=== PATIENT | female | born 1950 | race Caucasian/White ===

== ENCOUNTER → 2020-03-23 11:46 | Outpatient (BNVA) | payer MEDICARE, MEDICAID, SELFPAY | PROVIDERS: Family Provider Family Medicine; PCP Family Medicine; Visit Provider Family Medicine | DX: E11.65 Type 2 diabetes mellitus with hyperglycemia (principal); E78.2 Mixed hyperlipidemia; I10 Essential (primary) hypertension | CPT/HCPCS: 83036 ==

== ENCOUNTER → 2020-04-03 07:39 | Outpatient (BNVA) | payer MEDICARE, MEDICAID, SELFPAY | PROVIDERS: Family Provider Family Medicine; PCP Family Medicine; Visit Provider Family Medicine | DX: E11.65 Type 2 diabetes mellitus with hyperglycemia (principal); E78.2 Mixed hyperlipidemia; I10 Essential (primary) hypertension | CPT/HCPCS: 80053; 80061; 84439; 84443; 85025 ==

== ENCOUNTER → 2020-06-29 14:13 | Outpatient (BNVA) | payer MEDICARE, MEDICAID, SELFPAY | PROVIDERS: Family Provider Family Medicine; PCP Family Medicine; Visit Provider Family Medicine | DX: E11.59 Type 2 diabetes mellitus with other circulatory complications (principal); I10 Essential (primary) hypertension; E78.2 Mixed hyperlipidemia; M17.0 Bilateral primary osteoarthritis of knee | CPT/HCPCS: 36415; 80053; 80061; 83036; 85025 ==

== ENCOUNTER → 2020-07-20 15:40 | Outpatient (BNVA) | payer MEDICARE, MEDICAID, SELFPAY | PROVIDERS: Family Provider Family Medicine; PCP Family Medicine; Visit Provider Family Medicine | DX: E87.5 Hyperkalemia (principal) | CPT/HCPCS: 36415; 80053 ==

== ENCOUNTER 2020-08-05 15:35 | Emergency (ER) | payer MEDICARE, MEDICAID, SELFPAY ==
[2020-08-05 15:41] VITALS: BP 179/71; PULSE 76; RESP 18; TEMP 36.4; O2SAT 98; BMI 44.0
--- NOTE | 2020-08-05 15:55 | XRR_ITS ---
PROCEDURE INFORMATION: Exam: XR Chest, 1 View Exam date and time: 08/05/2020 3:56 PM Age: 70 years old Clinical indication: Shortness of breath; Additional info: Short of breath TECHNIQUE: Imaging protocol: XR of the chest Views: 1 view. COMPARISON: No relevant prior studies available. FINDINGS: Lungs: Unremarkable. No consolidation. Pleural space: Unremarkable. No pleural effusion. No pneumothorax. Heart/Mediastinum: Unremarkable. No cardiomegaly. Bones/joints: Unremarkable. XR/XR chest 1V portable [id number] IMPRESSION: No acute findings.
[2020-08-05 16:51] LABS: Basophils # 0.1 10^3/uL (0.0-0.1); Basophils % 1.2 %; Eosinophils # 0.3 10^3/uL (0.0-0.8); Eosinophils % 3.7 %; Hematocrit 40.7 % (37.0-47.0); Hemoglobin 12.5 g/dL (11.5-15.3); Lymphocytes # 1.9 10^3/uL (0.8-4.8); Lymphocytes % 24.5 %; Mean Corpuscular HGB Conc 30.7 g/dL (30.0-36.0); Mean Corpuscular Volume 91.1 fL (81-99); Mean Platelet Volume 11.4 fL (7.4-10.4); Monocytes # 0.6 10^3/uL (0.2-0.9); Monocytes % 8.1 %; Neutrophils # 4.79 10^3/uL (1.8-7.7); Neutrophils % 61.6 %; Nucleated Red Blood Cells % 0 %; Platelet Count 276 10^3/cmm (130-400); Red Blood Count 4.47 10^6/uL (4.1-5.3); Red Cell Distribution Width 15.3 % (12.1-15.1); White Blood Count 7.8 10^3/uL (4.0-10.0)
--- NOTE | 2020-08-05 17:22 | ECG_ITS ---
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 Measurements Intervals [place] Rate: 72 P: 72 AR: 196 QRS: 33 QRSD: 98 T: 46 QT: 412 QTc: 452 Interpretive Statements SINUS RHYTHM MINIMAL ST DEPRESSION [0.025+ mV ST DEPRESSION] Poor R wave progression No previous ECG available for comparison Electronically Signed On 08-05-2020 21:28:24 PLUG MAKING OPERATOR by Ambrose Bennett M.D. [id number] f
--- NOTE | 2020-08-05 17:26 | W.ED.GENADLT ---
HPI - General Adult General: Chief complaint: General Medical Stated complaint: SOB High BS, Swollen feet Time Seen by Provider: 08/05/20 17:21 History of Present Illness: HPI narrative: 70 year old female in for swelling lower extremities and elevated blood sugars. The patient has been a little more short of breath. No fever or chills. Onset (ago): day(s) Location: lower extremity Severity: mild Pain Consistency: constant Exacerbating factors: movement Associated symptoms: Reports dyspnea and short of breath; Deny fevers/chills Review of Systems Resp: Reports: dyspnea PFSH ED PFSH: Medical History Hyperlipidemia Hypertension Leg weakness, bilateral Osteoarthritis deformans Type 2 diabetes mellitus Social History Smoking and tobacco status: never smoked Alcohol intake: never Physical Exam Const: COMMON NORMALS: no acute distress and no limitations; negative for average body habitus GENERAL APPEARANCE: cooperative and Edematous HENMT: COMMON NORMALS: normocephalic HEAD & SCALP: normocephalic FACE & SINUS: normal facial exam Resp: COMMON NORMALS: normal respiratory effort and clear to auscultation bilaterally AUSCULTATION: clear to auscultation bilaterally Cardio: COMMON NORMALS: regular rate and regular rhythm RATE: regular rate RHYTHM: regular rhythm : COMMON NORMALS: Yes no CVA tenderness BLADDER/KIDNEY EXAM: Yes no CVA tenderness Back/Pelvis: COMMON NORMALS: no CVA tenderness Extremity: COMMON NORMALS: negative for no clubbing, cyanosis or edema NARRATIVE EXTREMITY EXAM: Mild non pitting edema GENERAL: Yes normal exam except as noted Course Vital Signs: Vital signs: Vital Signs Temperature 97.6 F 08/05/20 15:41 Pulse Rate 76 08/05/20 15:41 Respiratory Rate 18 08/05/20 15:41 Blood Pressure 179/71 08/05/20 15:41 Pulse Oximetry 98 08/05/20 15:41 MDM - General Adult MDM Narrative: Medical decision making narrative: 70-year-old in with concerns of lower extremity edema and shortness of breath. She is on 50 mg of hydrochlorothiazide as her only diuretic she reports she is allergic to furosemide. Suspect she has heart failure. I'll give her a dose of Bumex and see how she tolerates that. The patient doesn't appear to be any acute distress she is very worried about her blood sugar will give her small dose of insulin here. Everything checks out will be able to discharge her home with follow-up with her primary care physician. She should discontinue use of ibuprofen. May consider discontinuation of the Actos to given her heart failure. Lab Data: Labs: Lab Results 08/05/20 08/05/20 Range/Units 16:36 16:36 WBC 7.8 (4.0-10.0) 10^3/ uL RBC 4.47 (4.1-5.3) 10^6/u L Hgb 12.5 (11.5-15.3) g/dL Hct 40.7 (37.0-47.0) % MCV 91.1 (81-99) fL MCH 28.0 (28.0-34.0) pg MCHC 30.7 (30.0-36.0) g/dL RDW 15.3 H (12.1-15.1) % Plt Count 276 (130-400) 10^3/c mm MPV 11.4 H (7.4-10.4) fL Neut % (Auto) 61.6 % Lymph % (Auto) 24.5 % [place] % (Auto) 8.1 % Eos % (Auto) 3.7 % Baso % (Auto) 1.2 % Neut # (Auto) 4.79 (1.8-7.7) 10^3/u L Lymph # (Auto) 1.9 (0.8-4.8) 10^3/u L [place] # (Auto) 0.6 (0.2-0.9) 10^3/u L Eos # (Auto) 0.3 (0.0-0.8) 10^3/u L Baso # (Auto) 0.1 (0.0-0.1) 10^3/u L Nucleated RBC % (a uto) 0 % Nucleated RBCs # 0.0 /100WBC Sodium 137 (136-145) mmol/L Potassium 4.1 (3.5-5.1) mmol/L Chloride 104 (98-107) mmol/L Carbon Dioxide 22 (22-29) mmol/L Anion Gap 15.1 (5-19) BUN 29 H (8-23) mg/dL Creatinine 1.2 H (0.5-0.9) mg/dL GFR Calculation Not Reportable Glucose 243 H (65-115) mg/dL Calculated Osmolal ity 298 H (285-295) mOsm/k g Calcium 10.2 (8.5-10.5) mg/dL Total Bilirubin 1.0 (0.15-1.2) mg/dL AST 15 (0-32) U/L ALT 17 (0-33) U/L Alkaline Phosphata se 97 (35-105) IU/L NT-Pro-B Natriuret Pep 5276 H (0-125) pg/mL Total Protein 7.3 (6.6-8.7) g/dL Albumin 3.6 (3.5-5.2) g/dL Globulin 3.7 (1.3-4.6) g/dL Discharge Plan Discharge Patient Disposition: Home Clinical Impression: Heart failure Qualifiers: Heart failure type: unspecified Heart failure chronicity: acute on chronic Qualified Code(s): I50.9 - Heart failure, unspecified Condition: Stable Prescriptions: No Action calcium carbonate-vitamin D3 500 mg(1,250mg) -50 unit capsule 1 cap PO BID@ RF: 0 diphenhydramine HCl [Allergy (diphenhydramine)] 25 mg capsule 50 mg PO BEDTIME PRN (Reason: Sleep) RF: 0 ibuprofen 800 mg tablet 800 mg PO Q8H PRN (Reason: pain) Qty: 270 RF: 1 albuterol sulfate [ProAir HFA] 90 mcg/actuation HFA aerosol inhaler 2 puff INHALATION Q6H PRN (Reason: bronchospasm) Qty: 18 RF: 5 atenolol 100 mg tablet 100 mg PO BID@ RF: 0 hydrochlorothiazide 50 mg tablet 50 mg PO DAILY@ RF: 0 lisinopril 20 mg tablet 20 mg PO DAILY@ RF: 0 glipizide 10 mg tablet 20 mg PO BID@ RF: 0 clonidine HCl 0.3 mg tablet 0.3 mg PO TID@,, RF: 0 Actos 30 mg tablet 30 mg PO DAILY@ RF: 0 Crestor 10 mg tablet 10 mg PO DAILY@ RF: 0 Discharge Orders: Discharge ED (Routine); Ordered 08/05/20 Ordered By: Aguilar Muñiz Referrals: Devante Granados DO [Primary Care Provider] - Discharge Diet: Low Salt Discharge Activity: Resume usual activity Coding Level of Care Code ED [employer] 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
[2020-08-05 17:37] LABS: Alanine Aminotransferase 17 U/L (0-33); Albumin Level 3.6 g/dL (3.5-5.2); Alkaline Phosphatase 97 IU/L (35-105); Anion Gap 15.1 (5-19); Aspartate Amino Transferase 15 U/L (0-32); Blood Urea Nitrogen 29 mg/dL (8-23); Calcium 10.2 mg/dL (8.5-10.5); Carbon Dioxide 22 mmol/L (22-29); Chloride 104 mmol/L (98-107); Globulin 3.7 g/dL (1.3-4.6); Glucose 243 mg/dL (65-115); NT Pro B Type Natriuretic Pept 5276 pg/mL (0-125); Osmolality Calculated 298 mOsm/kg (285-295); Potassium 4.1 mmol/L (3.5-5.1); Sodium 137 mmol/L (136-145); Total Protein 7.3 g/dL (6.6-8.7)
[2020-08-05 18:11] LABS: Magnesium 1.4 mg/dL (1.7-2.3)
[2020-08-05] MEDS: bumetanide 0.25 mg/mL SDV 4 mL 1 MG IV (18:21)
[2020-08-05 18:28] VITALS: BP 175/118; PULSE 81; O2SAT 100
[2020-08-05 19:10] VITALS: BP 124/89; PULSE 87; RESP 16; O2SAT 99
== END 2020-08-05 19:12 | disposition home or self-care (01) ==
PROVIDERS: Nurse Practitioner Family; Emergency Provider Family Medicine; PCP Family Medicine
DX: I11.0 Hypertensive heart disease with heart failure (principal); I50.9 Heart failure, unspecified; E78.5 Hyperlipidemia, unspecified; E11.9 Type 2 diabetes mellitus without complications
CPT/HCPCS: 12345; 71045; 80053; 83735; 83880; 85025; 93005; 96372; 96374; 99283; J1815; J3490

== ENCOUNTER → 2021-05-03 11:45 | Outpatient (BNVA) | payer MEDICARE, MEDICAID, SELFPAY | PROVIDERS: PCP Family Medicine; Visit Provider Family Medicine | DX: E11.59 Type 2 diabetes mellitus with other circulatory complications (principal) | CPT/HCPCS: 83036 ==

== ENCOUNTER → 2021-11-01 10:47 | Outpatient (BNVA) | payer MEDICARE, MEDICAID, SELFPAY | PROVIDERS: PCP Family Medicine; Visit Provider Family Medicine | DX: E11.9 Type 2 diabetes mellitus without complications (principal); Z79.4 Long term (current) use of insulin | CPT/HCPCS: 83036 ==

== ENCOUNTER 2022-11-25 14:56 | Outpatient (CLI) | payer MEDICARE, MEDICAID, SELFPAY ==
--- NOTE | 2022-11-25 15:21 | MM_ITS ---
WS: [id number] BILATERAL 3D TOMOSYNTHESIS DIGITAL SCREENING MAMMOGRAPHY WITH CAD CLINICAL INFORMATION: SCREEN HISTORY: Screening mammogram. No current complaints. COMPARISON: 2017 TECHNIQUE: Bilateral CC and MLO views. FINDINGS: Scattered fibroglandular densities bilaterally. No suspicious focal mass, asymmetry, calcifications, or architectural distortion. No evidence of malignancy. Vascular calcification. Clustered calcificati ons 12:00 RIGHT breast are similar in appearance compared to 2017. MM/[place] [id number] IMPRESSION: BI-RADS: 2-Benign FOLLOW UP: 1 Year Follow-up Recommend return to annual screening mammography.
== END 2022-11-25 14:57 | disposition home or self-care (01) ==
LOC: RAD 15:02
PROVIDERS: PCP Family Medicine; Visit Provider Family Medicine
DX: Z12.31 Encounter for screening mammogram for malignant neoplasm of breast (principal)
CPT/HCPCS: 77063; 77067

== ENCOUNTER → 2022-12-14 09:08 | Outpatient (BNVA) | payer MEDICARE, MEDICAID, SELFPAY | PROVIDERS: PCP Family Medicine; Visit Provider Family Medicine | DX: E11.65 Type 2 diabetes mellitus with hyperglycemia (principal); Z79.4 Long term (current) use of insulin | CPT/HCPCS: 83036 ==

== ENCOUNTER → 2023-07-17 11:01 | Outpatient (BNVA) | payer MEDICARE, MEDICAID, SELFPAY | PROVIDERS: PCP Family Medicine; Visit Provider Family Medicine | DX: E11.9 Type 2 diabetes mellitus without complications (principal) | CPT/HCPCS: 83036 ==

== ENCOUNTER 2024-04-16 23:05 | Inpatient (IN) | payer MEDICARE, MEDICAID, SELFPAY ==
[2024-04-16 23:28] VITALS: BP 180/69; PULSE 77; RESP 16; TEMP 36.6; O2SAT 100; BMI 39.4
[2024-04-16 23:31] VITALS: BP 180/69; PULSE 72; RESP 18; O2SAT 100
--- NOTE | 2024-04-16 23:59 | ECG_ITS ---
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 Measurements Intervals [place] Rate: 71 P: 85 CT: 188 QRS: 40 QRSD: 89 T: 78 QT: 468 QTc: 510 Interpretive Statements SINUS RHYTHM WITH OCCASIONAL SUPRAVENTRICULAR PREMATURE COMPLEXES MODERATE ST DEPRESSION [0.05+ mV ST DEPRESSION] PROLONGED QT INTERVAL Compared to ECG 08/05/2020 17:34:38 Prolonged QT interval now present Poor R-wave progression no longer present ST (T wave) deviation still present Electronically Signed On 04-17-2024 17:35:41 CDT by Ambrose Bennett M.D. [id number]
--- NOTE | 2024-04-16 23:59 | XRR_ITS ---
PROCEDURE INFORMATION: Exam: XR Chest Exam date and time: 04/17/2024 12:21 AM Age: 73 years old Clinical indication: Shortness of breath; Additional info: Weakness TECHNIQUE: Imaging protocol: Radiologic exam of the chest. Views: 1 view. COMPARISON: CR XR chest 1V portable [id number] 08/05/2020 4:09 PM FINDINGS: Lungs: There is linear scarring or atelectasis involving the left mid lung. No consolidated infiltrates are appreciated. Pleural spaces: Unremarkable. No pleural effusion. No pneumothorax. Heart/Mediastinum: The heart is slightly enlarged. Bones/joints: Unremarkable. XR/XR chest 1V portable [id number] IMPRESSION: 1. Mild cardiomegaly. 2. Linear scarring or atelectasis involving the left mid lung.
[2024-04-17] VITALS (32 sets, daily range): BP systolic 132–198; BP diastolic 60–93; PULSE 65–86; RESP 14–18; TEMP 36.6–37.2; O2SAT 91–100; BMI 42.9
--- NOTE | 2024-04-17 00:04 | W.ED.WEAKNES ---
HPI - Weakness General: Chief complaint: Weakness Stated complaint: generalized weakness Time Seen by Provider: 04/16/24 23:56 History of Present Illness: Patient presents to the ER for generalized weakness. She says when she was sitting on toilet use the bathroom her legs went numb and she could not get up so she called life alert. Said now she is all back to normal. Patient does use a walker in her wheelchair normally. Review of Systems General: Reports: 10 or more systems reviewed and unremarkable except in HPI and below PFSH ED PFSH: Medical History Osteoarthritis deformans Leg weakness, bilateral Type 2 diabetes mellitus Hypertension Hyperlipidemia Social History Smoking and tobacco/nicotine status: never used tobacco/nicotine Alcohol intake: never Physical Exam Const: COMMON NORMALS: no acute distress, average body habitus, patient oriented x3, no limitations, healthy appearing, alert and well nourished HENMT: COMMON NORMALS: normocephalic, atraumatic, hearing grossly normal bilaterally, external ears normal, Normal external nose present and moist oral mucous membranes HEAD & SCALP: normocephalic and atraumatic NOSE: Normal external nose present EXTERNAL EAR: Yes external ears normal Neck/C-Spine: COMMON NORMALS: no JVD Chest: COMMONS NORMALS: normal inspection of the chest and normal palpation of entire chest wall Resp: COMMON NORMALS: normal respiratory effort, No retractions, No use of accessory muscles and clear to auscultation bilaterally AUSCULTATION: clear to auscultation bilaterally Cardio: COMMON NORMALS: no JVD, regular rate, regular rhythm, S1 normal heart sound present, S2 normal heart sound present, No gallops present (Cardio), No clicks present (Cardio), No murmurs present (Cardio) and No rub (Cardio) RATE: regular rate RHYTHM: regular rhythm HEART SOUNDS: S1 normal heart sound present and S2 normal heart sound present GI: COMMON NORMALS: Normal to inspection, nondistended, normoactive bowel sounds present, Soft to palpation, non-tender, No hepatosplenomegaly present and no masses PALPATION: Yes Soft to palpation and Yes No hepatosplenomegaly present Extremity: NARRATIVE EXTREMITY EXAM: 2+ pitting edema bilateral lower extremities Neuro: COMMON NORMALS: patient oriented x3 SENSORIUM/ORIENTATION: Yes alert Course Vital Signs: Vital signs: Vital Signs Temperature 97.8 F 04/16/24 23:28 Pulse Rate 72 04/17/24 01:30 Respiratory Rate 14 04/17/24 01:30 Blood Pressure 183/68 04/17/24 01:30 Pulse Oximetry 100 04/17/24 01:30 Oxygen Delivery Me thod Room Air 04/17/24 01:30 MDM - Weakness Medical Decision Making Patient's white count was 32,000, platelets 478, hemoglobin 7.2, BUN/creatinine 39 and 1.6, magnesium 1.4, sed rate 16, Dr. Irizarry came down and evaluated patient, we will get a CT scan of the abdomen pelvis without contrast as well as a CT scan of the lumbar spine. Patient [facility] be placed in [facility] for further evaluation and treatment. Medical Records I reviewed the patient's medical records. Lab Data I reviewed the patient's lab results. 04/17/24 00:17 04/17/24 00:17 Radiology Impressions Chest X-Ray 04/16/24 23:59 IMPRESSION: 1. Mild cardiomegaly. 2. Linear scarring or atelectasis involving the left mid lung. Laboratory Results WBC 32.06 10^3/uL (3.29-11.43) H* 04/17/24 00:17 RBC 4.06 10^6/uL (3.85-5.65) 04/17/24 00:17 Hgb 7.20 g/dL (11.27-16.99) L 04/17/24 00:17 Hct 26.7 % (36-47) L 04/17/24 00:17 MCV 65.8 fl (85-98) L 04/17/24 00:17 MCH 17.7 pg (27-33) L 04/17/24 00:17 MCHC 27.0 g/dL (30-55) L 04/17/24 00:17 RDW 17.0 % (12.1-15.1) H 04/17/24 00:17 Plt Count 478 10^3/cmm (157-399) H 04/17/24 00:17 MPV 9.8 fL (7.4-10.4) 04/17/24 00:17 Neut % (Auto) 90.8 % 04/17/24 00:17 Lymph % (Auto) 2.7 % 04/17/24 00:17 [place] % (Auto) 4.8 % 04/17/24 00:17 Eos % (Auto) 0.0 % 04/17/24 00:17 Baso % (Auto) 0.2 % 04/17/24 00:17 Neut # (Auto) 29.08 10^3/uL (1.8-7.7) H 04/17/24 00:17 Lymph # (Auto) 0.9 10^3/uL (0.8-4.8) 04/17/24 00:17 [place] # (Auto) 1.5 10^3/uL (0.2-0.9) H 04/17/24 00:17 Eos # (Auto) 0.0 10^3/uL (0.0-0.8) 04/17/24 00:17 Baso # (Auto) 0.1 10^3/uL (0.0-0.1) 04/17/24 00:17 Nucleated RBC % (auto) 0.2 % 04/17/24 00:17 Nucleated RBCs # 0.1 /100WBC 04/17/24 00:17 ESR 16 mm/hr (0-15) H 04/17/24 00:17 PT 14.00 SECONDS (12.1-14.9) 04/17/24 01:17 INR 1.05 (0.8-1.2) 04/17/24 01:17 APTT 24.2 SECONDS (23.9-36.7) 04/17/24 01:17 Sodium 137 mmol/L (136-145) 04/17/24 00:17 Potassium 3.9 mmol/L (3.5-5.1) 04/17/24 00:17 Chloride 100 mmol/L (98-107) 04/17/24 00:17 Carbon Dioxide 21 mmol/L (22-29) L 04/17/24 00:17 Anion Gap 19.9 (5-19) H 04/17/24 00:17 BUN 39 mg/dL (8-23) H 04/17/24 00:17 Creatinine 1.6 mg/dL (0.5-0.9) H 04/17/24 00:17 GFR Calculation Not Reportable 04/17/24 00:17 Glucose 166 mg/dL (65-115) H 04/17/24 00:17 Calculated Osmolality 297 mOsm/kg (285-295) H 04/17/24 00:17 Lactic Acid 1.7 mmol/L (0.5-2.2) 04/17/24 01:17 Calcium 9.4 mg/dL (8.5-10.5) 04/17/24 00:17 Magnesium 1.4 mg/dL (1.7-2.3) L 04/17/24 00:17 Total Bilirubin 0.8 mg/dL (0.15-1.2) 04/17/24 00:17 AST 11 U/L (0-32) 04/17/24 00:17 ALT 8 U/L (0-33) 04/17/24 00:17 Alkaline Phosphatase 99 U/L (35-105) 04/17/24 00:17 Troponin T Baseline 25 ng/L (0-10) H 04/17/24 01:17 C-Reactive Protein 3.0 mg/L (0.0-4.9) 04/17/24 01:17 NT-Pro-B Natriuret Pep 3212 pg/mL (0-450) H 04/17/24 01:17 Total Protein 7.0 g/dL (6.6-8.7) 04/17/24 00:17 Albumin 3.6 g/dL (3.5-5.2) 04/17/24 00:17 Globulin 3.4 g/dL (1.3-4.6) 04/17/24 00:17 Procalcitonin 0.18 ng/mL (0-0.5) 04/17/24 01:17 TSH 3.75 uIU/mL (0.27-4.20) 04/17/24 01:17 Salicylates < 0.3 mg/dL (3-10) L 04/17/24 01:17 Acetaminophen < 5.0 ug/mL (10-30) L 04/17/24 01:17 Ethyl Alcohol < 10 mg/dL (0-10) 04/17/24 01:17 Serum Ketones Negative (Negative) 04/17/24 01:17 All radiology interpretation(s) finalized by discharge Discharge Plan Discharge Patient Disposition: Admitted As Inpatient Admit Provider: Vijay Irizarry Clinical Impression: Bilateral leg weakness, Anemia, Leukocytosis, Acute kidney insufficiency Condition: Stable Coding Level of Care Code ED Public Safety Director for Chg Fwd Related Data Home Medications Medication Instructions Recorded Confirmed diphenhydramine HCl 25 mg capsule 50 mg PO BEDTIME PRN Sleep 03/23/20 07/17/23 (Allergy (diphenhydramine)) calcium carbonate-vitamin D3 500 1 cap PO BID@06/29/20 07/17/23 mg (1,250 mg)-50 unit capsule Previous Rx's Medication Instructions Recorded albuterol sulfate 90 mcg/actuation 2 puff inhalation Q6H PRN 12/14/22 aerosol inhaler (ProAir HFA) bronchospasm #18 grams rosuvastatin 10 mg tablet See Rx Instructions .Route 07/05/23 .COMPLEX #90 tabs ibuprofen 800 mg tablet 800 mg PO Q8H PRN pain #270 tabs 07/17/23 scooter #1 ea 07/19/23 pen needle, diabetic 32 gauge x #100 ea 09/06/2332 (TechLITE Pen Needle) blood sugar diagnostic (Accu-Chek #400 ea 09/22/23 Nettie Plus test strips) lisinopril 20 mg tablet See Rx Instructions .Route 11/15/23 .COMPLEX #180 tabs hydrochlorothiazide 50 mg tablet See Rx Instructions .Route 11/27/23 .COMPLEX #90 tabs insulin NPH-regular 70-30 U-100 See Rx Instructions .Route 03/04/24 insulin 100 unit/mL subcutaneous .COMPLEX #15 mL pen (Humulin 70/30 U-100 KwikPen) clonidine HCl 0.3 mg tablet See Rx Instructions .Route 03/19/24 .COMPLEX #90 tabs atenolol 100 mg tablet See Rx Instructions .Route 04/02/24 .COMPLEX #60 tabs Allergies Allergy/AdvReac Type Severity Reaction Status Date / Time furosemide [From Lasix] Allergy Intermediate ALGY-Hives Verified 07/17/23 10:17 metformin AdvReac Intermediate algy-diarrh Verified 07/17/23 10:17 ea
[2024-04-17 00:31] LABS: Basophils # 0.1 10^3/uL (0.0-0.1); Basophils % 0.2 %; Hematocrit 26.7 % (36-47); Lymphocytes # 0.9 10^3/uL (0.8-4.8); Lymphocytes % 2.7 %; Mean Corpuscular Hemoglobin 17.7 pg (27-33); Mean Corpuscular Volume 65.8 fl (85-98); Mean Platelet Volume 9.8 fL (7.4-10.4); Monocytes # 1.5 10^3/uL (0.2-0.9); Monocytes % 4.8 %; Neutrophils # 29.08 10^3/uL (1.8-7.7); Neutrophils % 90.8 %; Nucleated Red Blood Cells # 0.1 /100WBC; Nucleated Red Blood Cells % 0.2 %; Platelet Count 478 10^3/cmm (157-399); Red Blood Count 4.06 10^6/uL (3.85-5.65)
[2024-04-17 00:45] LABS: Alanine Aminotransferase 8 U/L (0-33); Albumin Level 3.6 g/dL (3.5-5.2); Alkaline Phosphatase 99 U/L (35-105); Anion Gap 19.9 (5-19); Aspartate Amino Transferase 11 U/L (0-32); Blood Urea Nitrogen 39 mg/dL (8-23); Calcium 9.4 mg/dL (8.5-10.5); Carbon Dioxide 21 mmol/L (22-29); Chloride 100 mmol/L (98-107); Creatinine Clr Calc Pharmacy 35.7544; Globulin 3.4 g/dL (1.3-4.6); Glucose 166 mg/dL (65-115); Magnesium 1.4 mg/dL (1.7-2.3); Osmolality Calculated 297 mOsm/kg (285-295); Potassium 3.9 mmol/L (3.5-5.1); Sodium 137 mmol/L (136-145); Total Bilirubin 0.8 mg/dL (0.15-1.2)
[2024-04-17 00:49] LABS: White Blood Count 32.06 10^3/uL (3.29-11.43)
[2024-04-17] MEDS: sodium chloride 0.9% 1,000 ML 999 ML IV (01:15)
--- NOTE | 2024-04-17 01:21 | ECG_ITS ---
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 Measurements Intervals [place] Rate: 78 P: 66 MS: 177 QRS: 38 QRSD: 94 T: 53 QT: 433 QTc: 494 Interpretive Statements SINUS RHYTHM MODERATE ST DEPRESSION [0.05+ mV ST DEPRESSION] Compared to ECG 04/17/2024 00:08:31 Prolonged QT interval no longer present ST (T wave) deviation still present Electronically Signed On 04-17-2024 17:35:45 CDT by Ambrose Bennett M.D. [id number]
[2024-04-17 01:32] LABS: Erythrocyte Sedimentation Rate 16 mm/hr (0-15)
--- NOTE | 2024-04-17 01:40 | CTR_ITS ---
PROCEDURE INFORMATION: Exam: CT Abdomen And Pelvis Without Contrast Exam date and time: 04/17/2024 2:16 AM Age: 73 years old Clinical indication: Abdominal tenderness; Prior surgery; Surgery date: 6+ months; Surgery type: Hysterectomy; Additional info: Leukocytosis, abd pain TECHNIQUE: Imaging protocol: Computed tomography of the abdomen and pelvis without contrast. Radiation optimization: All CT scans at this facility use at least one of these dose optimization techniques: automated exposure control; mA and/or kV adjustment per patient size (includes targeted exams where dose is matched to clinical indication); or iterative reconstruction. COMPARISON: CR (CHEST, ) 04/17/2024 12:21 AM RADIATION DOSE METRICS: Total DLP (mGy-cm): 0 FINDINGS: Liver: Normal. No mass. Gallbladder and biliary ducts: Modest gallbladder wall thickening. Negative for calcified stones. Negative for biliary dilation. Pancreas: Atrophic pancreas. Negative for lesion. Spleen: Normal. No splenomegaly. Adrenal glands: Normal. No mass. Kidneys and ureters: Normal. No hydronephrosis. Stomach and bowel: Relatively diffuse colon wall thickening most significant on the right. Pericolonic stranding. Negative for bowel obstruction or perforation. Negative for pneumatosis intestinalis. Appendix: No evidence of appendicitis. Intraperitoneal space: Small to moderate pelvic free fluid volume which is hyperdense showing intermediate Hounsfield units. Negative for pneumoperitoneum. Vasculature: Unremarkable. No abdominal aortic aneurysm. Lymph nodes: Unremarkable. No enlarged lymph nodes. Urinary bladder: Unremarkable as visualized. Reproductive: Hysterectomy. Bones/joints: The lumbar spine demonstrates marked discogenic and apophyseal joint degenerative changes at multiple levels. Grade 1 L4-L5 spondylolisthesis. No acute fracture. Soft tissues: Plaques of the abdominal wall. Negative for aneurysm. CT/CT abdomen pelvis wo con [id number] IMPRESSION: 1. Nonspecific colitis pattern. 2. Non simple pelvic free fluid with proteinaceous characteristics. Consider hemoperitoneum.
--- NOTE | 2024-04-17 01:40 | CTR_ITS ---
PROCEDURE INFORMATION: Exam: CT Lumbar Spine Without Contrast Exam date and time: 04/17/2024 2:23 AM Age: 73 years old Clinical indication: Lumbago and weakness; Prior surgery; Surgery date: 6+ months; Surgery type: Hysterectomy; Additional info: Low back pain TECHNIQUE: Imaging protocol: Computed tomography of the lumbar spine without contrast. Radiation optimization: All CT scans at this facility use at least one of these dose optimization techniques: automated exposure control; mA and/or kV adjustment per patient size (includes targeted exams where dose is matched to clinical indication); or iterative reconstruction. COMPARISON: CT abdomen pelvis wo con [id number] 04/17/2024 2:16 AM RADIATION DOSE METRICS: Total DLP (mGy-cm): 993.6 FINDINGS: Bones/joints: Negative for acute lumbar spine fracture.The lumbar spine demonstrates marked discogenic and apophyseal joint degenerative changes at multiple levels. Grade 1 L4-L5 spondylolisthesis. Negative for lytic aggressive bone lesion. Moderate to severe spinal canal stenosis at L4-L5. Diffuse lumbar facet joint arthropathy changes. Soft tissues: Unremarkable lumbar paraspinal soft tissues.. CT/CT lumbar spine wo con* [id number] IMPRESSION: Negative for acute lumbar spine pathology.
[2024-04-17 01:46] LABS: Ketone (Acetest) Serum Negative (Negative)
[2024-04-17 01:51] LABS: Lactic Sepsis W/Reflex 1.7 mmol/L (0.5-2.2)
[2024-04-17 01:54] LABS: Troponin(5th) Baseline 25 ng/L (0-10)
[2024-04-17 02:01] LABS: Procalcitonin 0.18 ng/mL (0-0.5); Thyroid Stimulating Hormone 3.75 uIU/mL (0.27-4.20)
[2024-04-17 02:28] LABS: Acetaminophen < 5.0 ug/mL (10-30); Alcohol Level < 10 mg/dL (0-10); Salicylate < 0.3 mg/dL (3-10)
--- NOTE | 2024-04-17 02:41 | P.HP_ITS ---
Providers/Chief Complaint 2 Admitting Physician: Vijay Irizarry MD Primary Care Provider: Devante Granados DO Chief Complaint: generalized weakness History of Present Illness Johanny Tran is a 73 year old female with a past medical history of hypertension, hyperlipidemia, type 2 diabetes mellitus, who presents to [facility] due to nausea, vomiting, bilateral lower extremity weakness, numbness. Patient tells me that she normally is wheelchair-bound, she can transfer with assistance, she lives with her family members, she has been doing well recently, has had no significant complaints except intermittent low back pain. Denies any fevers, no chills, no cough, no abdominal pain, no dysuria, hematuria, no recent falls. She tells me that she was in [employer] earlier Monday morning, she felt nauseous, she did vomited at that time. She did have some nonspecific abdominal pain associated with her vomiting. She then tells me that she went home, she in the evening time got on her toilet, when both of her legs suddenly felt weak, felt numb, and she could not get off the toilet, eventually found members helped her off the toilet, EMS was called she tells me that thereafter she quickly regained strength, and sensation in bilateral lower extremities. She denies a history of DVT, no calf pain, no calf swelling. She does report back pain which is chronic but more frequently recently. No urinary incontinence, no bowel incontinence, no saddle or perianal anesthesia. No recent falls. No history of back surgeries. No headache, blurry vision, she is alert awake, following all commands Review of Systems 2 Const: Reports: fatigue and malaise Card: Denies: chest pain Resp: Denies: dyspnea GI: Reports: abdominal pain, nausea and vomiting : Denies: flank pain Musc: Reports: back pain; Denies: neck pain Skin/Breast: Denies: rash Neuro: Reports: numbness in extremities, weakness in extremities and difficulty walking; Denies: headache(s), frequent falls, dizziness, Slurred speech present or difficulty communicating thoughts Medications/Allergies Home Medications Medication Instructions Recorded Confirmed Last Taken Type diphenhydramine HCl 25 mg capsule 50 mg PO BEDTIME PRN Sleep 03/23/20 07/17/23 Unknown History (Allergy (diphenhydramine)) calcium carbonate-vitamin D3 500 1 cap PO BID@06/29/20 07/17/23 08/05/20 History mg (1,250 mg)-50 unit capsule albuterol sulfate 90 mcg/actuation 2 puff inhalation Q6H PRN 12/14/22 07/17/23 Unknown Rx aerosol inhaler (ProAir HFA) bronchospasm #18 grams rosuvastatin 10 mg tablet See Rx Instructions .Route 07/05/23 07/17/23 Unknown Rx .COMPLEX #90 tabs ibuprofen 800 mg tablet 800 mg PO Q8H PRN pain #270 tabs 07/17/23 07/17/23 Unknown Rx scooter #1 ea 07/19/23 07/19/23 Unknown Rx pen needle, diabetic 32 gauge x #100 ea 09/06/23 Unknown Rx (TechLITE Pen Needle) blood sugar diagnostic (Accu-Chek #400 ea 09/22/23 Unknown Rx Nettie Plus test strips) lisinopril 20 mg tablet See Rx Instructions .Route 11/15/23 Unknown Rx .COMPLEX #180 tabs hydrochlorothiazide 50 mg tablet See Rx Instructions .Route 11/27/23 Unknown Rx .COMPLEX #90 tabs insulin NPH-regular 70-30 U-100 See Rx Instructions .Route 03/04/24 Unknown Rx insulin 100 unit/mL subcutaneous .COMPLEX #15 mL pen (Humulin 70/30 U-100 KwikPen) clonidine HCl 0.3 mg tablet See Rx Instructions .Route 03/19/24 Unknown Rx .COMPLEX #90 tabs atenolol 100 mg tablet See Rx Instructions .Route 04/02/24 Unknown Rx .COMPLEX #60 tabs Allergies Allergy/AdvReac Type Severity Reaction Status Date / Time furosemide [From Lasix] Allergy Intermediate ALGY-Hives Verified 07/17/23 10:17 metformin AdvReac Intermediate algy-diarrh Verified 07/17/23 10:17 ea PFSH Acute 2 PFSH: Medical History Osteoarthritis deformans Leg weakness, bilateral Type 2 diabetes mellitus Hypertension Hyperlipidemia Social History Smoking and tobacco/nicotine status: never used tobacco/nicotine Alcohol intake: never Vitals/I&O/Wt Last Vital Signs Temp 97.8 F 04/16/24 23:28 Pulse 72 04/17/24 01:30 Resp 14 04/17/24 01:30 BP 183/68 04/17/24 01:30 Pulse Ox 100 04/17/24 01:30 O2 Del Method Room Air 04/17/24 01:30 Weight last 48 hrs Weight 104.326 kg Physical Exam 2 Const: COMMON NORMALS: no acute distress and patient oriented x3 HENMT: COMMON NORMALS: normocephalic HEAD & SCALP: normocephalic Eye: COMMON NORMALS: Equal, round and reactive pupils present and EOMs intact bilaterally Neck/C-Spine: COMMON NORMALS: no JVD Lymph: LYMPHATIC: no lymphadenopathy noted Resp: COMMON NORMALS: normal respiratory effort, No retractions, No use of accessory muscles and clear to auscultation bilaterally AUSCULTATION: clear to auscultation bilaterally Cardio: COMMON NORMALS: no JVD, regular rate, regular rhythm, S1 normal heart sound present and S2 normal heart sound present RATE: regular rate RHYTHM: regular rhythm HEART SOUNDS: S1 normal heart sound present and S2 normal heart sound present GI: COMMON NORMALS: Normal to inspection, nondistended, normoactive bowel sounds present, Soft to palpation and non-tender Extremity: COMMON NORMALS: no calf tenderness and no pedal edema Neuro: COMMON NORMALS: patient oriented x3, CN's II-XII intact bilaterally, moves all extremities and no focal motor deficits Psych: COMMON NORMALS: mental status grossly normal Data 04/17/24 00:17 04/17/24 00:17 Micro: Microbiology 04/17/24 01:17 Blood Culture - Preliminary Blood SPECIMEN COLLECTED 04/17/24 01:17 Blood Culture - Preliminary Blood SPECIMEN COLLECTED A&P Assessment and plan (1) Hypertension: Qualifiers: Hypertension type: essential hypertension Qualified Code(s): I10 - Essential (primary) hypertension (2) Type 2 diabetes mellitus: Qualifiers: Diabetes mellitus terminal system operator insulin use: without prison use Diabetes mellitus complication status: with circulatory complication Diabetes mellitus complication detail: with other circulatory complications Qualified Code(s): E 11.59 - Type 2 diabetes mellitus with other circulatory complications (3) Anemia: Qualifiers: Anemia type: unspecified type Qualified Code(s): D64.9 - Anemia, unspecified (4) Leukocytosis: Qualifiers: Leukocytosis type: unspecified Qualified Code(s): D72.829 - Elevated white blood cell count, unspecified (5) Bilateral leg weakness: (6) Acute kidney injury: (7) Hypomagnesemia: Plan Leukocytosis -Etiology unclear -Awaiting a UA, but denies any dysuria, no flank pain -Does report nausea, vomiting nonspecific abdominal pain will await CT abdomen pelvis -Chest x-ray within normal limits -LFTs within normal limits -CRP, Pro-Oren -She does complain of bilateral lower extremity weakness, numbness with history of back pain, CT lumbar spine, ESR, CRP, Pro-Oren -Obtain peripheral smear -Consider leukemia, lymphoma panel based on clinical progress Acute anemia -Low MCV, with evidence of iron deficiency anemia -Is on NSAIDs as outpatient -Possible slow GI bleed? -No reported bloody black stools -Will keep n.p.o. just in case she needs an EGD -Protonix -Carafate -Iron studies -Monitor hemoglobin every 4 hours -Transfuse if hemoglobin less than 7 -Monitor hemodynamics closely -INR, PTT A CT abdomen pelvis Acute kidney injury ? IV fluids Hypomagnesemia, replace IV Bilateral lower extremity weakness -No alarm symptoms, no urinary continence, bowel incontinence, no saddle perineal anesthesia, no strokelike symptoms -Etiology unclear -CT head -CT lumbar spine Type 2 diabetes mellitus, low-dose sliding scale Hypertension resume home blood pressure medications Full code SCD for DVT prophylaxis, Lovenox relatively Trying to Get a Given Acute Anemia Attestations 2 Medical Necessity Statement*: Patient requires hospitalization, inpatient, greater than 2 midnights, for leukocytosis, of undetermined etiology, acute anemia, bilateral extremity weakness, SONIYA, hypomagnesemia, concern for slow GI bleed, iron deficiency, Diagnoses Essential hypertension I10 Hypertension type: essential hypertension Type 2 diabetes mellitus with other circulatory complication, without long-term current use of insulin E11.59 Diabetes mellitus prison insulin use: without terminal system operator use Diabetes mellitus complication status: with circulatory complication Diabetes mellitus complication detail: with other circulatory complications Anemia D64.9 Anemia type: unspecified type Leukocytosis D72.829 Leukocytosis type: unspecified Bilateral leg weakness R29.898 Acute kidney injury N17.9 Hypomagnesemia E83.42
--- NOTE | 2024-04-17 02:45 | CTR_ITS ---
PROCEDURE INFORMATION: Exam: CT Head Without Contrast Exam date and time: 04/17/2024 3:22 AM Age: 73 years old Clinical indication: Weakness, extremity; Bilateral; Additional info: Bilateral le weakness TECHNIQUE: Imaging protocol: Computed tomography of the head without contrast. Radiation optimization: All CT scans at this facility use at least one of these dose optimization techniques: automated exposure control; mA and/or kV adjustment per patient size (includes targeted exams where dose is matched to clinical indication); or iterative reconstruction. COMPARISON: No relevant prior studies available. RADIATION DOSE METRICS: Total DLP (mGy-cm): 1142.04 FINDINGS: Brain: There is no mass effect, midline shift, acute hemorrhage, extra-axial fluid collection or acute lobar infarct. There is chronic encephalomalacia in the left frontal lobe. Scattered hemispheric white matter hypodensity likely represents chronic microvascular ischemic change. Cerebral ventricles: No ventriculomegaly. Paranasal sinuses: Visualized sinuses are unremarkable. No fluid levels. Mastoid air cells: Visualized mastoid air cells are well aerated. Bones: Unremarkable. No acute fracture. Soft tissues: Unremarkable. CT/CT head wo con* [id number] IMPRESSION: No acute intracranial process.
[2024-04-17 02:51] LABS: INR 1.05 (0.8-1.2)
[2024-04-17 02:52] LABS: Partial Thromboplastin Time 24.2 SECONDS (23.9-36.7)
--- NOTE | 2024-04-17 03:01 | ECG_ITS ---
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 Measurements Intervals [place] Rate: 72 P: 65 SD: 192 QRS: 40 QRSD: 93 T: 60 QT: 448 QTc: 492 Interpretive Statements SINUS RHYTHM MODERATE ST DEPRESSION [0.05+ mV ST DEPRESSION] PROLONGED QT INTERVAL Compared to ECG 04/17/2024 01:40:00 Prolonged QT interval now present ST (T wave) deviation still present Electronically Signed On 04-17-2024 17:42:27 CDT by Ambrose Bennett M.D. [id number]
[2024-04-17 03:05] LABS: NT Pro B Type Natriuretic Pept 3212 pg/mL (0-450)
[2024-04-17 03:28] LABS: Bilirubin Urine Negative (Negative); Blood Urine Negative (Negative); Charge for UA Resulting for Rev; Glucose Urine UA Negative (Normal); Ketones Urine Negative (Negative); Leukocyte Esterase Urine 2+ (Negative); Nitrate Urine Positive (Negative); Protein Urine 1+ (Negative); Specific Gravity, Urine 1.016 (1.005-1.030); Urine Appearance Cloudy (CLEAR); Urine Color Yellow (Yellow); pH Urine 5.5 (5-7)
[2024-04-17 03:28] LABS: LAB Peripheral Smear Sent for Review
[2024-04-17] MEDS: hyDRALAzine 20 mg/mL INJ 1 mL IVP (03:31)
[2024-04-17 03:35] LABS: Amphetamines Screen Urine Negative (Negative); Barbiturates Screen Urine Negative (Negative); Benzodiazepines Screen Urine Negative (Negative); Cocaine Screen Urine Negative (Negative); Opiate Screen Urine Negative (Negative); PCP Screen Urine Negative (Negative); THC Screen Urine Negative (Negative)
[2024-04-17 03:49] LABS: UA Manual Slide Review YES
[2024-04-17 03:57] LABS: Hematocrit 25.5 % (36-47)
[2024-04-17 04:16] LABS: Troponin 5 2HR 30.74 ng/L (0-10); Troponin 5 2HR Delta 5.74 ABS# (0-10)
[2024-04-17 04:18] LABS: Creatine Phosphokinase 87 U/L (26-192)
[2024-04-17 04:22] LABS: Bacteria Urine 3+ /hpf; Squamous Epithelial Cell Urine 0-4 /hpf (0-5); WBC Urine 51-100 /hpf (0-5)
[2024-04-17 04:23] LABS: Add Urine Culture? Yes; Mucus Urine 2+ /hpf
[2024-04-17] MEDS: pantoprazole 40 mg SDV IVP ×2 (05:20→16:10)
[2024-04-17] MEDS: sucralfate 1 gm/10 mL Oral Liq UDC PO ×4 (05:20→21:36)
[2024-04-17] MEDS: amlodipine 10 mg Tablet PO (05:20)
[2024-04-17] MEDS: sodium chloride 0.9% 1,000 ML 75 ML IV ×2 (05:21→17:39)
[2024-04-17] MEDS: magnesium sulfate premix 1 GM/100 ML PIGGYBACK IV (05:21)
[2024-04-17 05:30] LABS: Iron 29 ug/dL (37-145)
[2024-04-17 05:31] LABS: Ferritin 8 ng/mL (15-150); Iron 16 ug/dL (37-145); Percent Saturation 3.7 % (20-50); Total Iron Binding Capacity 432 mcg/dl; Transferrin 376 mg/dL (200-360); Unsaturated Iron Binding 416 ug/dL (112-347)
--- NOTE | 2024-04-17 06:09 | US_ITS ---
WS: [id number] Complete ABDOMINAL ULTRASOUND HISTORY: free fluid, hemoperitoneum COMPARISON: None available. Liver: 13.4 cm in length. Normal size liver. Slightly coarse echotexture. Portal Vein: Normal hepatopetal flow with monophasic waveform. Gallbladder: Normally distended. Several stones are present in the gallbladder lumen. The largest sto laxmi measure up to 1.5 cm. CBD: 0.6 cm Pancreas: Normal size and echogenicity. Right kidney: 9.4 cm x 4.5 x 3.7 cm. Cortex: 1.1 cm. Normal size and echogenicity. No hydronephrosis or mass. Left kidney: 9.4 cm x 4.4 cm x 4.2 cm. Cortex: 1.1 cm. Normal size and echogenicity. No hydronephrosis or mass. Spleen: 8.3 cm. Normal size and echogenicity. Aorta and IVC: Unremarkable abdominal aorta and IVC. There is a small amount of free fluid in the pelvis. Uncertain etiology. No fluid in Morison's pouch. US/US abdomen complete* [id number] Impression: 1. Cholelithiasis without evidence for acute cholecystitis. 2. Small amount of free fluid in the pelvis. There are a few low-level echoes within the fluid suggesting this could be related to blood or infection. 3. Mild coarse echotexture throughout the liver from chronic hepatocellular di sease. No mass or bile duct dilatation.
[2024-04-17] MEDS: piperacillin-tazobactam 3.375 GM in sodium chloride 0.9% (plus) 50 ML IV ×3 (06:42→21:36)
[2024-04-17 07:22] LABS: Hematocrit 22.8 % (36-47)
--- NOTE | 2024-04-17 07:36 | ECG_ITS ---
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 Measurements Intervals [place] Rate: 86 P: 90 SC: 212 QRS: 50 QRSD: 93 T: 70 QT: 395 QTc: 474 Interpretive Statements SINUS RHYTHM WITH FIRST DEGREE AV BLOCK MODERATE ST DEPRESSION [0.05+ mV ST DEPRESSION] Compared to ECG 04/17/2024 03:01:16 First degree AV block now present Prolonged QT interval no longer present ST (T wave) deviation still present Electronically Signed On 04-17-2024 17:43:45 CDT by Ambrose Bennett M.D. [id number]
[2024-04-17 07:43] LABS: Troponin 5 6HR 28.67 ng/L (0-10); Troponin 5 6HR Delta 3.67 ng/L (0-12)
[2024-04-17 08:04] LABS: Adenovirus Not Detected (NOT DETECT); Chlamydia Pneumoniae Not Detected (NOT DETECT); Coronavirus 229E,HKU1,NL63,OC4 Not Detected (NOT DETECT); Human Metapneumovirus Not Detected (NOT DETECT); Human Rhinovirus/Enterovirus Not Detected (NOT DETECT); Influenza A Not Detected (NOT DETECT); Influenza A H1 Not Detected (NOT DETECT); Influenza A H1-2009 Not Detected (NOT DETECT); Influenza A H3 Not Detected (NOT DETECT); Influenza B Not Detected (NOT DETECT); Mycoplasma Pneumoniae Not Detected (NOT DETECT); Parainfluenza Virus Type 1 Not Detected (NOT DETECT); Parainfluenza Virus Type 2 Not Detected (NOT DETECT); Parainfluenza Virus Type 3 Not Detected (NOT DETECT); Parainfluenza Virus Type 4 Not Detected (NOT DETECT); Respiratory Syncytial Virus A Not Detected (NOT DETECT); Respiratory Syncytial Virus B Not Detected (NOT DETECT); SARS-COV-2 Not Detected (NOT DETECT)
[2024-04-17 08:21] LABS: Glucose Point of Care 173 mg/dL (70-110)
[2024-04-17] MEDS: insulin lispro 100 unit/1 mL SUBCUT ×2 (09:36→17:36)
[2024-04-17] MEDS: atenolol 50 mg Tablet 100 MG PO ×2 (09:37→17:36)
[2024-04-17] MEDS: cloNIDine 0.1 mg Tablet PO ×3 (09:37→21:36)
[2024-04-17] MEDS: atorvastatin 40 mg Tablet PO (09:37)
[2024-04-17 11:39] LABS: Glucose Point of Care 117 mg/dL (70-110)
--- NOTE | 2024-04-17 11:39 | W.PM.EVENTAC ---
Event Note Event Note: History and physical reviewed. Patient reports she is feeling somewhat better. She denies any back pain or abdominal pain. She denies any decrease sensation to her lower extremities currently. She reports no falls. I discussed with her the concern of low blood count, urinary tract infection, acute kidney injury. Will continue to monitor closely. Doubt hemoperitoneum with her significant improvement. Still could potentially have GI bleeding. Continue Zosyn for concern of UTI.
[2024-04-17 16:49] LABS: Glucose Point of Care 161 mg/dL (70-110)
[2024-04-17 18:10] LABS: Hematocrit 24.2 % (36-47)
[2024-04-17 20:32] LABS: Glucose Point of Care 229 mg/dL (70-110)
[2024-04-17 21:28] LABS: Hematocrit 21.6 % (36-47)
[2024-04-17 21:47] LABS: Troponin(5th) Baseline 32 ng/L (0-10)
[2024-04-17 21:49] LABS: Magnesium 1.6 mg/dL (1.7-2.3)
[2024-04-17 23:38] LABS: Troponin 5 2HR 32.33 ng/L (0-10); Troponin 5 2HR Delta 0.33 ABS# (0-10)
[2024-04-18] VITALS (21 sets, daily range): BP systolic 164–198; BP diastolic 61–88; PULSE 69–93; RESP 16–18; TEMP 36.6–37.4; O2SAT 92–98
[2024-04-18] MEDS: sucralfate 1 gm/10 mL Oral Liq UDC PO ×4 (02:40→20:51)
[2024-04-18] MEDS: amlodipine 10 mg Tablet PO (02:41)
[2024-04-18] MEDS: pantoprazole 40 mg SDV IVP ×2 (02:41→16:01)
[2024-04-18 03:19] LABS: Basophils # 0.1 10^3/uL (0.0-0.1); Basophils % 0.6 %; Eosinophils # 0.3 10^3/uL (0.0-0.8); Eosinophils % 2.7 %; Hematocrit 25.7 % (36-47); Lymphocytes # 1.9 10^3/uL (0.8-4.8); Lymphocytes % 16.9 %; Mean Corpuscular HGB Conc 29.6 g/dL (30-55); Mean Corpuscular Hemoglobin 20.8 pg (27-33); Mean Corpuscular Volume 70.2 fl (85-98); Mean Platelet Volume 9.4 fL (7.4-10.4); Monocytes # 1.1 10^3/uL (0.2-0.9); Monocytes % 9.9 %; Neutrophils # 7.64 10^3/uL (1.8-7.7); Neutrophils % 69.2 %; Nucleated Red Blood Cells # 0.1 /100WBC; Nucleated Red Blood Cells % 0.5 %; Platelet Count 337 10^3/cmm (157-399); Red Blood Count 3.66 10^6/uL (3.85-5.65); Red Cell Distribution Width 21.3 % (12.1-15.1); White Blood Count 11.05 10^3/uL (3.29-11.43)
[2024-04-18 03:36] LABS: Troponin 5 6HR 32.13 ng/L (0-10); Troponin 5 6HR Delta 0.13 ng/L (0-12)
[2024-04-18 03:39] LABS: Alanine Aminotransferase 8 U/L (0-33); Albumin Level 3.3 g/dL (3.5-5.2); Alkaline Phosphatase 93 U/L (35-105); Anion Gap 17.5 (5-19); Aspartate Amino Transferase 13 U/L (0-32); Blood Urea Nitrogen 23 mg/dL (8-23); Calcium 8.3 mg/dL (8.5-10.5); Carbon Dioxide 19 mmol/L (22-29); Chloride 106 mmol/L (98-107); Creatinine Clr Calc Pharmacy 49.9931; Globulin 2.7 g/dL (1.3-4.6); Glucose 139 mg/dL (65-115); Magnesium 1.5 mg/dL (1.7-2.3); Osmolality Calculated 294 mOsm/kg (285-295); Potassium 3.5 mmol/L (3.5-5.1); Sodium 139 mmol/L (136-145); Total Bilirubin 2.4 mg/dL (0.15-1.2)
--- NOTE | 2024-04-18 05:34 | PC.NURSE ---
This nurse came to notice the patients haq catheter was not charted as inserted on the patient. the Haq was placed before the patient was moved on the the floor, in ER, on 04/17/2024. Haq has been managed and is patient and draining. patient tolerating well.
[2024-04-18] MEDS: sodium chloride 0.9% 1,000 ML 75 ML IV (05:56)
[2024-04-18] MEDS: piperacillin-tazobactam 3.375 GM in sodium chloride 0.9% (plus) 50 ML IV ×3 (05:56→22:06)
[2024-04-18 06:19] LABS: Glucose Point of Care 204 mg/dL (70-110)
[2024-04-18] MEDS: atenolol 50 mg Tablet 100 MG PO ×2 (06:29→17:51)
[2024-04-18] MEDS: cloNIDine 0.1 mg Tablet PO ×3 (06:29→20:51)
--- NOTE | 2024-04-18 06:31 | PC.NURSE ---
this nurse notified of the patients elevated blood pressures the first was 185/68 15 minutes later it was 173/78. this nurse received orders to give the patients morning blood pressure medications early.
[2024-04-18] MEDS: insulin lispro 100 unit/1 mL SUBCUT ×3 (08:04→17:51)
[2024-04-18] MEDS: atorvastatin 40 mg Tablet PO (08:05)
[2024-04-18 08:41] LABS: Hematocrit 27.5 % (36-47)
[2024-04-18 09:10] LABS: Lactate Dehydrogenase 222 U/L (135-214)
[2024-04-18] MEDS: iron sucrose 200 MG in sodium chloride 0.9% (100 ml) 100 ML 220 MG IV (09:49)
[2024-04-18] MEDS: magnesium sulfate premix 2 GM/50 ML PIGGYBACK IV (09:49)
--- NOTE | 2024-04-18 10:03 | PC.CHAP ---
Pastoral Care Encounter/Spiritual Assessment Type of Contact [] Declined sheet rock taper helper visit [] Patient/Family/Request visit [] Outpatient visit [] Follow-up visit [] Physician referral [] Code/Alert [] Routine visit [] Staff referral [] Actively dying [] Patient sleeping [] Family support [] [] Out of room [] Palliative care [] [] Receiving care in room [] Pre-surgical visit [] Trauma [] Long length of stay [] ICU visit [x] Other:Contact precautions. No visit. Relational/Emotional Strength [] Patient feels connected with others/family/visitors/staff [] Distress [] Loneliness/isolation [] Abandonment Spirituality of Patient [] Person of Mery [] Attends Faith of their Mery [] Believes in Prayer [] Reads Bible or Advent materials [] There are Spiritual issues to be addressed Research Software Engineer Interventions [] Prayer [] Active listening [] Non-anxious presence [] Spiritual/emotional support [] Crisis/trauma care [] Spiritual counseling [] Bereavement support [] Provided bereavement packet [] Provided Bible/devotional materials [] Provided toy/stuffed animal, coloring book to patient or family member [] Provided Communion [] Anointing/[place] [] Salvation [] Completed spiritual assessment [] Other: Impact on Illness or Injury [] Angry [] Fearful [] Anxious [] Often cries [] Exhaustion [] Unable to work [] Unable to attend anabaptist [] Unable to walk/stand [] Unable to read [] Unable to drive [] Unable to eat/drink [] Unable to sleep [] Unable to be with family [] Patient intubated [] Other: Summary Time spent with patient
--- NOTE | 2024-04-18 10:47 | P.PN_ITS ---
Subjective 2 Subjective: Johanny reports she feels pretty good today. Denies any pain. I discussed with her I was visiting with her daughter as well regarding her concerns. She had an any other unit of blood last night, for hemoglobin of 6.3. She is not had any stool, making there any suspicion of rapid GI bleeding. From her MCV of 66, likely her iron deficiency anemia has been going on a while. Medications: Reviewed: Yes Vitals/I&O/Wt Last Vital Signs Temp 99.4 F 04/18/24 07:50 Pulse 93 04/18/24 07:50 Resp 18 04/18/24 07:50 BP 173/78 04/18/24 07:50 Pulse Ox 93 04/18/24 07:50 O2 Del Method Room Air 04/18/24 07:50 04/17/24 04/18/24 04/18/24 22:59 06:59 14:59 Intake Total 1942.5 / 1992.5 1571.25 / 3563.75 50 / 50 Output Total 1450 / 1450 900 / 2350 Balance 492.5 / 542.5 671.25 / 1213.75 50 / 50 Weight last 48 hrs Weight 116.029 kg Weight 113.398 kg Weight 113.398 kg Weight 104.326 kg Physical Exam 2 Narrative: General Exam no distress, alert and responsive Neck is supple Cardiovascular regular rate and rhythm Lungs clear Abdomen is soft, nontender Extremities no cyanosis clubbing or edema Urinary Catheter Management: Walters: Cath Placed During This Visit: no Reason for Continuing Indwelling Catheter: Other Data 04/18/24 08:09 04/18/24 03:03 Micro: Microbiology 04/17/24 03:00 Urine Culture - Preliminary Urine,Clean Catch Gram Negative Rods 04/17/24 01:17 Blood Culture - Preliminary Blood 04/17/24 01:17 Blood Culture - Preliminary Blood NEGATIVE TO DATE A&P Assessment and plan (1) Anemia: Patient with multiple imaging studies upon admission, that were not useful in regards to delineation of anemia She has significant iron deficiency, and is very microcytic increasing likelihood of chronic GI blood loss. This should be ruled out first. Consultation with general surgery for potential EGD and colonoscopy She has received 2 units of blood Iron transfusion today Repeat hemoglobin tomorrow Ibuprofen was a risk factor at home for GI bleeding No stools here to suggest any rapid bleed Awaiting stool Hemoccult Haptoglobin is not low LDH near normal Check hemoglobin this afternoon Qualifiers: Anemia type: unspecified type Qualified Code(s): D64.9 - Anemia, unspecified (2) Acute kidney injury: This is improved with fluids. She is now at her baseline. Avoid renal toxic medication. (3) UTI (urinary tract infection): Urine growing gram-negative rods. Await ID and sensitivity. Continue IV antibiotics consisting of Zosyn Note that blood cultures 1/4 bottles gram-positive antonio. This is likely contaminant. Await ID and sensitivity (4) Hypomagnesemia: Still low, supplement again and recheck tomorrow with CBC and CMP (5) Hypertension: Continue patient's home antihypertensives. Blood pressure somewhat high at times. Qualifiers: Hypertension type: essential hypertension Qualified Code(s): I10 - Essential (primary) hypertension (6) Type 2 diabetes mellitus: Sliding scale insulin When diet is started consistent carb diet Qualifiers: Diabetes mellitus ferry terminal supervisor insulin use: without usp use Diabetes mellitus complication status: with circulatory complication Diabetes mellitus complication detail: with other circulatory complications Qualified Code(s): E 11.59 - Type 2 diabetes mellitus with other circulatory complications Plan Global weakness. Physical therapy seen. Likely may need nursing facility placement Multiple other medical problems outlined in past medical history Concerns of acute encephalopathy on admission, breath have now normalized SCDs for DVT prophylaxis. No pharmacological anticoagulation secondary to severe anemia Attestations 2 Medical Necessity Statement*: Needs continued hospital stay for evaluation of anemia, IV antibiotics for UTI associated with acute encephalopathy Diagnoses Anemia D64.9 Anemia type: unspecified type Acute kidney injury N17.9 UTI (urinary tract infection) N39.0 Hypomagnesemia E83.42 Essential hypertension I10 Hypertension type: essential hypertension Type 2 diabetes mellitus with other circulatory complication, without long-term current use of insulin E11.59 Diabetes mellitus ferry terminal supervisor insulin use: without usp use Diabetes mellitus complication status: with circulatory complication Diabetes mellitus complication detail: with other circulatory complications Time Spent (min) 21
[2024-04-18 11:29] LABS: Glucose Point of Care 298 mg/dL (70-110)
[2024-04-18 11:41] LABS: Bacillus cereus group Not Detected (NOT DETECT); Bacillus subtillis group Not Detected (NOT DETECT); Corynebacterium Not Detected (NOT DETECT); Cutibacterium acnes (P.acnes) Not Detected (NOT DETECT); Enterococcus Not Detected (NOT DETECT); Enterococcus faecalis Not Detected (NOT DETECT); Enterococcus faecium Not Detected (NOT DETECT); Lactobacillus species Not Detected (NOT DETECT); Listeria Not Detected (NOT DETECT); Listeria monocytogenes Not Detected (NOT DETECT); Micrococcus Not Detected (NOT DETECT); Pan Candida Not Detected (NOT DETECT); Pan Gram-Negative Not Detected (NOT DETECT); Staphylococcus epidermidis Not Detected (NOT DETECT); Staphylococcus lugdunensis Not Detected (NOT DETECT); Staphylococcus species Not Detected (NOT DETECT); Streptococcus agalactiae Not Detected (NOT DETECT); Streptococcus anginosus group Not Detected (NOT DETECT); Streptococcus pneumoniae Not Detected (NOT DETECT); Streptococcus pyogenes Not Detected (NOT DETECT); Streptococcus species Not Detected (NOT DETECT)
[2024-04-18] MEDS: acetaminophen 325 mg Tablet 650 MG PO (14:17)
--- NOTE | 2024-04-18 15:36 | P.CONIM_ITS ---
Providers/Reason For Consult 2 Consulting Physician/Specialty*: Dr. Juan José Jarvis, /General Surgery Reason for Consult*: Iron deficiency anemia Attending Physician: Bashir Mckoy MD Primary Care Provider: Devante Granados DO History of Present Illness History of Present Illness Johanny Tran is a 73 year old female who presented to the hospital after being unable to get up off the toilet due to weakness in her legs. She also had some nausea and vomiting but denies any hematemesis. She reports she is not currently nauseous and has no abdominal pain. She denies any hematochezia and/or melena. She was found to have iron deficiency anemia while in the hospital and CT of the abdomen pelvis shows colitis, especially right sided despite her having no abdominal pain. She reports she has never had a colonoscopy before and denies any family history of colon cancer Review of Systems 2 General: Reports: 10 or more systems reviewed and unremarkable except in HPI and below Medications/Allergies Home Medications Medication Instructions Recorded Confirmed Last Taken Type diphenhydramine HCl 25 mg capsule 50 mg PO BEDTIME PRN Sleep 03/23/20 04/17/24 Unknown History (Allergy (diphenhydramine)) calcium carbonate-vitamin D3 500 1 cap PO BID@06/29/20 04/17/24 1 Week Ago History mg (1,250 mg)-50 unit capsule ~04/10/24 albuterol sulfate 90 mcg/actuation 2 puff inhalation Q6H PRN 12/14/22 04/17/24 Unknown Rx aerosol inhaler (ProAir HFA) bronchospasm #18 grams rosuvastatin 10 mg tablet See Rx Instructions .Route 07/05/23 04/17/24 1 Day Ago Rx .COMPLEX #90 tabs ~04/16/24 ibuprofen 800 mg tablet 800 mg PO Q8H PRN pain #270 tabs 07/17/23 04/17/24 1 Day Ago Rx ~04/16/24 pen needle, diabetic 32 gauge x #100 ea 09/06/23 04/17/24 Unknown Rx (TechLITE Pen Needle) blood sugar diagnostic (Accu-Chek #400 ea 09/22/23 04/17/24 Unknown Rx Nettie Plus test strips) lisinopril 20 mg tablet See Rx Instructions .Route 11/15/23 04/17/24 1 Day Ago Rx .COMPLEX #180 tabs ~04/16/24 hydrochlorothiazide 50 mg tablet See Rx Instructions .Route 11/27/23 04/17/24 1 Day Ago Rx .COMPLEX #90 tabs ~04/16/24 insulin NPH-regular 70-30 U-100 See Rx Instructions .Route 03/04/24 04/17/24 1 Day Ago Rx insulin 100 unit/mL subcutaneous .COMPLEX #15 mL ~04/16/24 pen (Humulin 70/30 U-100 KwikPen) clonidine HCl 0.3 mg tablet See Rx Instructions .Route 03/19/24 04/17/24 1 Day Ago Rx .COMPLEX #90 tabs ~04/16/24 atenolol 100 mg tablet See Rx Instructions .Route 04/02/24 04/17/24 1 Day Ago Rx .COMPLEX #60 tabs ~04/16/24 Allergies Allergy/AdvReac Type Severity Reaction Status Date / Time furosemide [From Lasix] Allergy Intermediate ALGY-Hives Verified 07/17/23 10:17 metformin AdvReac Intermediate algy-diarrh Verified 07/17/23 10:17 ea Current Medications Generic Name Dose Route Start Last Admin Trade Name Freq PRN Reason Stop Dose Admin Acetaminophen 650 mg 04/17/24 03:33 04/18/24 14:17 Acetaminophen 325 Mg Tablet PO 650 mg Q6H PRN Administration Mild/Mod Pain Or Temp >/= 101 Amlodipine Besylate 10 mg 04/17/24 03:33 04/18/24 02:41 Amlodipine 10 Mg Tablet PO 10 mg Q24H EDIS Administration Atenolol 100 mg 04/17/24 09:00 04/18/24 06:29 Atenolol 50 Mg Tablet PO 100 mg BID EDIS Administration Atorvastatin Calcium 40 mg 04/17/24 09:00 04/18/24 08:05 Atorvastatin 40 Mg Tablet PO 40 mg DAILY EDIS Administration Clonidine HCl 0.1 mg 04/17/24 09:00 04/18/24 06:29 Clonidine 0.1 Mg Tablet PO 0.1 mg TID EDIS Administration Piperacillin Sod/Tazobactam 50 mls @ 12.5 mls/hr 04/17/24 06:30 04/18/24 10:10 Sod 3.375 gm/ Sodium Chloride IV Infused Q8H EDIS Infusion Protocol Insulin Human Lispro 0 unit 04/17/24 08:00 04/18/24 13:37 Insulin Lispro 100 Unit/1 Ml SUBCUT 8 unit TIDWM EDIS Administration Protocol Pantoprazole Sodium 40 mg 04/17/24 03:33 04/18/24 02:41 Pantoprazole 40 Mg Sdv IVP 40 mg Q12H EDIS Administration Sucralfate 1 gm 04/17/24 03:33 04/18/24 08:05 Sucralfate 1 Gm/10 Ml Oral Liq Udc PO 1 gm Q6H EDIS Administration PFSH Acute 2 PFSH: Medical History Osteoarthritis deformans Leg weakness, bilateral Type 2 diabetes mellitus Hypertension Hyperlipidemia Social History Smoking and tobacco/nicotine status: never used tobacco/nicotine Alcohol intake: never Vitals/I&O/Wt Last Vital Signs Temp 98.1 F 04/18/24 11:35 Pulse 74 04/18/24 11:35 Resp 17 04/18/24 11:35 BP 182/67 04/18/24 11:35 Pulse Ox 97 04/18/24 11:35 O2 Del Method Nasal Cannula 04/18/24 11:35 04/18/24 04/18/24 04/18/24 06:59 14:59 22:59 Intake Total 1571.25 / 3563.75 1210 / 1210 Output Total 900 / 2350 Balance 671.25 / 1213.75 1210 / 1210 Weight last 48 hrs Weight 255 lb 12.8 oz Weight 250 lb Weight 250 lb Weight 230 lb Physical Exam 2 Narrative: General : Patient is well developed , no acute distress, oriented x3 Head : Normal cephalic, a-traumatic. Ears : Pinnae and external canal are normal. Hearing is normal. Eyes : PERRLA, Sclera and injection are normal. No conjunctival discharge. Nose : Mucous membranes are without erythema. Throat : buccal mucosa is normal, gums are without significant recession or hypertrophy. Lungs : Equal chest rise bilaterally, no use of accessory muscles, trachea is midline. Cor : Rate and rhythm are normal. Abdomen : Soft, ND, NT, no g/r/m Extremities : No edema, no cyanosis or clubbing, dorsalis pedis pulses are present bilaterally, non-tender to palpation of calves. Upper extremities are normal bilaterally. Back : non-tender to palpation, no CVA tenderness. Neuro : CN II - XII intact, Upper and lower extremities have equal and full strength Urinary Catheter Management: Walters: Cath Placed During This Visit: no Reason for Continuing Indwelling Catheter: Other Data 04/18/24 08:09 04/18/24 03:03 Micro: Microbiology 04/17/24 01:17 Blood Culture - Preliminary Blood 04/17/24 03:00 Urine Culture - Preliminary Urine,Clean Catch Gram Negative Rods 04/17/24 01:17 Blood Culture - Preliminary Blood A&P Assessment and plan (1) Iron deficiency anemia: Plan Bowel prep N.p.o. after 8 AM EGD and colonoscopy The risks and benefits of the procedure, including bleeding, infection, intestinal perforation requiring surgery, missed lesion were explained to the patient. The patient is understanding of the risks and wishes to proceed. Medical management per hospitalist Coding Level of Care Code 62759 Diagnoses Iron deficiency anemia D50.9
[2024-04-18] MEDS: peg /e-lyte soln 4,000 mL Btl 4000 ML PO (15:56)
--- NOTE | 2024-04-18 16:35 | PC.OT ---
OT TREATMENT ATTEMPTED. PATIENT GROANING IN ROOM; SHE STATES THAT HE FEELS LIKE HER ASTHMA IS ACTING UP. PATIENT HR: 77 AND O2 SAT: 95% PATIENT DECLINES ADL PERFORMANCE AT THIS TIME
[2024-04-18 16:41] LABS: Glucose Point of Care 206 mg/dL (70-110)
[2024-04-18 16:57] LABS: Hematocrit 26.3 % (36-47)
[2024-04-18 20:21] LABS: Glucose Point of Care 259 mg/dL (70-110)
[2024-04-18 21:20] LABS: Hematocrit 27.6 % (36-47)
[2024-04-19] VITALS (36 sets, daily range): BP systolic 131–210; BP diastolic 51–88; PULSE 68–87; RESP 18–44; TEMP 36.7–37; O2SAT 81–100
[2024-04-19] MEDS: sodium chloride 0.9% 1,000 ML 50 ML IV (00:15)
[2024-04-19] MEDS: hyDRALAzine 25 mg Tablet PO ×5 (00:29→20:25)
[2024-04-19] MEDS: sucralfate 1 gm/10 mL Oral Liq UDC PO ×4 (03:34→20:39)
[2024-04-19] MEDS: amlodipine 10 mg Tablet PO (03:34)
[2024-04-19] MEDS: pantoprazole 40 mg SDV IVP ×2 (03:34→15:07)
[2024-04-19 05:04] LABS: Basophils # 0.1 10^3/uL (0.0-0.1); Basophils % 0.8 %; Eosinophils # 0.1 10^3/uL (0.0-0.8); Eosinophils % 0.9 %; Hematocrit 30.2 % (36-47); Lymphocytes # 1.5 10^3/uL (0.8-4.8); Lymphocytes % 9.4 %; Mean Corpuscular HGB Conc 27.8 g/dL (30-55); Mean Corpuscular Hemoglobin 20.3 pg (27-33); Mean Corpuscular Volume 73.1 fl (85-98); Mean Platelet Volume 9.9 fL (7.4-10.4); Monocytes # 1.6 10^3/uL (0.2-0.9); Monocytes % 9.7 %; Neutrophils # 12.47 10^3/uL (1.8-7.7); Neutrophils % 77.5 %; Nucleated Red Blood Cells # 0.1 /100WBC; Nucleated Red Blood Cells % 0.7 %; Platelet Count 378 10^3/cmm (157-399); Red Blood Count 4.13 10^6/uL (3.85-5.65); Red Cell Distribution Width 21.7 % (12.1-15.1); White Blood Count 16.09 10^3/uL (3.29-11.43)
[2024-04-19 05:22] LABS: Alanine Aminotransferase 11 U/L (0-33); Albumin Level 3.4 g/dL (3.5-5.2); Alkaline Phosphatase 117 U/L (35-105); Anion Gap 19.9 (5-19); Aspartate Amino Transferase 18 U/L (0-32); Blood Urea Nitrogen 11 mg/dL (8-23); Calcium 8.6 mg/dL (8.5-10.5); Carbon Dioxide 17 mmol/L (22-29); Chloride 101 mmol/L (98-107); Creatinine Clr Calc Pharmacy 67.6165; Globulin 3.8 g/dL (1.3-4.6); Glucose 187 mg/dL (65-115); Osmolality Calculated 284 mOsm/kg (285-295); Sodium 135 mmol/L (136-145); Total Bilirubin 2.9 mg/dL (0.15-1.2); Total Protein 7.2 g/dL (6.6-8.7)
[2024-04-19 05:33] LABS: Potassium 2.9 mmol/L (3.5-5.1)
[2024-04-19] MEDS: piperacillin-tazobactam 3.375 GM in sodium chloride 0.9% (plus) 50 ML IV ×3 (06:18→21:46)
[2024-04-19] MEDS: potassium chloride ER 20 mEq Tablet 40 MEQ PO ×2 (06:19→12:38)
[2024-04-19 06:37] LABS: Glucose Point of Care 233 mg/dL (70-110)
--- NOTE | 2024-04-19 06:58 | PC.NURSE ---
patient blood pressure reading manually at 2325 was 198/88. dr kaur notified, he oredered hydralazine 25mg po bid. blood pressure retaken at 0115, with a reading of 210/90. notified again, he ordered to resume her lisinipril 20mg bid. recheck 30 minutes later reading manually was 200/80. dr ordered to transfer patient to CSU and start a cardene drip. patient is alert and oriented and is aware of her transfer. she is being transferred to [facility] in cardiac ICU
[2024-04-19] MEDS: nicardipine 20 MG/200 ML PREMIX 50 MG IV (07:39)
--- NOTE | 2024-04-19 07:44 | PC.NURSE ---
Patient received from [facility]. Patient current BP is 190/88. Started cardene drip as ordered and documented. Will continue to monitor.
--- NOTE | 2024-04-19 08:47 | P.ANESASSM_ITS ---
Pre-Anesthetic Assessment Height/Weight: Height 5 ft 4 in Weight 256 lb 3.2 oz Temp Pulse Resp BP Pulse Ox O2 Del Method O2 Flow Rate 98.0 F 87 25 H 190/88 91 Nasal Cannula 3 04/19/24 07:57 04/19/24 07:57 04/19/24 07:57 04/19/24 07:57 04/19/24 08:38 04/19/24 08:38 04/19/24 08:38 Operation Date: 04/19/24 12:30 Proposed Procedures p EGD(Not Applicable) - Juan José Jarvis DO s Colonoscopy(Not Applicable) - Juan José Jarvis DO Familial anesthetic complications: None Social No alcohol and No tobacco Anesthetic Plan Other: Patient initially admitted for diffuse weakness, iron deficiency anemia Type 2 diabetes on insulin Hypertension on lisinopril and hydrochlorothiazide Labs reviewed today WBC 16.09 Hemoglobin 8.4 Sodium 135 Potassium 2.9, patient received 40 mill equivalents p.o. replacement this a.m. Patient is currently on a Cardene drip due to hypertension Plan for MAC anesthetic Medications/Allergies Home Medications Medication Instructions Recorded Confirmed Last Taken Type diphenhydramine HCl 25 mg capsule 50 mg PO BEDTIME PRN Sleep 03/23/20 04/17/24 Unknown History (Allergy (diphenhydramine)) calcium carbonate-vitamin D3 500 1 cap PO BID@06/29/20 04/17/24 1 Week Ago History mg (1,250 mg)-50 unit capsule ~04/10/24 albuterol sulfate 90 mcg/actuation 2 puff inhalation Q6H PRN 12/14/22 04/17/24 Unknown Rx aerosol inhaler (ProAir HFA) bronchospasm #18 grams rosuvastatin 10 mg tablet See Rx Instructions .Route 07/05/23 04/17/24 1 Day Ago Rx .COMPLEX #90 tabs ~04/16/24 ibuprofen 800 mg tablet 800 mg PO Q8H PRN pain #270 tabs 07/17/23 04/17/24 1 Day Ago Rx ~04/16/24 pen needle, diabetic 32 gauge x #100 ea 09/06/23 04/17/24 Unknown Rx (TechLITE Pen Needle) blood sugar diagnostic (Accu-Chek #400 ea 09/22/23 04/17/24 Unknown Rx Nettie Plus test strips) lisinopril 20 mg tablet See Rx Instructions .Route 11/15/23 04/17/24 1 Day Ago Rx .COMPLEX #180 tabs ~04/16/24 hydrochlorothiazide 50 mg tablet See Rx Instructions .Route 11/27/23 04/17/24 1 Day Ago Rx .COMPLEX #90 tabs ~04/16/24 insulin NPH-regular 70-30 U-100 See Rx Instructions .Route 03/04/24 04/17/24 1 Day Ago Rx insulin 100 unit/mL subcutaneous .COMPLEX #15 mL ~04/16/24 pen (Humulin 70/30 U-100 KwikPen) clonidine HCl 0.3 mg tablet See Rx Instructions .Route 03/19/24 04/17/24 1 Day Ago Rx .COMPLEX #90 tabs ~04/16/24 atenolol 100 mg tablet See Rx Instructions .Route 04/02/24 04/17/24 1 Day Ago Rx .COMPLEX #60 tabs ~04/16/24 Allergies Allergy/AdvReac Type Severity Reaction Status Date / Time furosemide [From Lasix] Allergy Intermediate ALGY-Hives Verified 07/17/23 10:17 metformin AdvReac Intermediate algy-diarrh Verified 07/17/23 10:17 ea Current Medications Generic Name Dose Route Start Last Admin Trade Name Freq PRN Reason Stop Dose Admin Acetaminophen 650 mg 04/17/24 03:33 04/18/24 14:17 Acetaminophen 325 Mg Tablet PO 650 mg Q6H PRN Administration Mild/Mod Pain Or Temp >/= 101 Amlodipine Besylate 10 mg 04/17/24 03:33 04/19/24 03:34 Amlodipine 10 Mg Tablet PO 10 mg Q24H EDIS Administration Atenolol 100 mg 04/17/24 09:00 04/18/24 17:51 Atenolol 50 Mg Tablet PO 100 mg BID EDIS Administration Atorvastatin Calcium 40 mg 04/17/24 09:00 04/18/24 08:05 Atorvastatin 40 Mg Tablet PO 40 mg DAILY EDIS Administration Clonidine HCl 0.1 mg 04/17/24 09:00 04/18/24 20:51 Clonidine 0.1 Mg Tablet PO 0.1 mg TID EDIS Administration Hydralazine HCl 25 mg 04/19/24 02:15 04/19/24 02:25 Hydralazine 25 Mg Tablet PO 25 mg ONCE EDIS Administration Piperacillin Sod/Tazobactam 50 mls @ 12.5 mls/hr 04/17/24 06:30 04/19/24 06:18 Sod 3.375 gm/ Sodium Chloride IV 12.5 mls/hr Q8H EDIS Administration Protocol Sodium Chloride 1,000 mls @ 50 mls/hr 04/18/24 23:00 04/19/24 00:15 Sodium Chloride 0.9% IV 50 mls/hr .Q20H EDIS Administration Nicardipine/Sodium Chloride 20 mg in 200 mls @ 0 mls/hr 04/19/24 06:45 04/19/24 07:39 Cardene IV 5 mg/hr .Q0M EDIS 50 mls/hr Administration Protocol Per Protocol Insulin Human Lispro 0 unit 04/17/24 08:00 04/18/24 17:51 Insulin Lispro 100 Unit/1 Ml SUBCUT 4 unit TIDWM EDIS Administration Protocol Pantoprazole Sodium 40 mg 04/17/24 03:33 04/19/24 03:34 Pantoprazole 40 Mg Sdv IVP 40 mg Q12H EDIS Administration Sucralfate 1 gm 04/17/24 03:33 04/19/24 03:34 Sucralfate 1 Gm/10 Ml Oral Liq Udc PO 1 gm Q6H EDIS Administration PFSH Anesthesia Medical History Osteoarthritis deformans Leg weakness, bilateral Type 2 diabetes mellitus Hypertension Hyperlipidemia Social History Smoking and tobacco/nicotine status: never used tobacco/nicotine Alcohol intake: never Data Anesthesia 04/19/24 04:15 04/19/24 04:15 Short CBC 04/17/24 04/17/24 04/18/24 Range/Units 17:07 21:11 03:03 WBC 11.05 (3.29-11.43) 10^3/uL Hgb 6.90 L 6.30 L* 7.60 L (11.27-16.99) g/dL Hct 24.2 L 21.6 L 25.7 L (36-47) % MCV 70.2 L (85-98) fl Plt Count 337 (157-399) 10^3/cmm Neut % (Auto) 69.2 % Neut # (Auto) 7.64 (1.8-7.7) 10^3/uL 04/18/24 04/18/24 04/18/24 Range/Units 08:09 16:16 21:14 WBC (3.29-11.43) 10^3/uL Hgb 8.20 L 7.80 L 8.10 L (11.27-16.99) g/dL Hct 27.5 L 26.3 L 27.6 L (36-47) % MCV (85-98) fl Plt Count (157-399) 10^3/cmm Neut % (Auto) % Neut # (Auto) (1.8-7.7) 10^3/uL 04/19/24 Range/Units 04:15 WBC 16.09 H (3.29-11.43) 10^3/uL Hgb 8.40 L (11.27-16.99) g/dL Hct 30.2 L (36-47) % MCV 73.1 L (85-98) fl Plt Count 378 (157-399) 10^3/cmm Neut % (Auto) 77.5 % Neut # (Auto) 12.47 H (1.8-7.7) 10^3/uL BMP 04/18/24 04/19/24 03:03 04:15 Sodium 139 135 L Potassium 3.5 2.9 L Chloride 106 101 Carbon Dioxide 19 L 17 L BUN 23 11 Creatinine 1.2 H 0.9 Glucose 139 H 187 H Calcium 8.3 L 8.6 Cardiac Enzymes 04/17/24 04/17/24 04/18/24 Range/Units 21:11 22:53 03:03 Troponin T Baseline 32 H (0-10) ng/L Troponin T 120 Minute 32.33 H (0-10) ng/L Delta Troponin T 0.33 (0-10) ABS# Troponin T Hi Sens 6Hr 32.13 H (0-10) ng/L Troponin T Hi Sens 6Hr Delta 0.13 (0-12) ng/L Liver Function 04/18/24 04/19/24 Range/Units 03:03 04:15 Total Bilirubin 2.4 H 2.9 H (0.15-1.2) mg/dL AST 13 18 (0-32) U/L ALT 8 11 (0-33) U/L Alkaline Phosphatase 93 117 H (35-105) U/L Albumin 3.3 L 3.4 L (3.5-5.2) g/dL Blood Bank 04/17/24 01:17 Blood Type A Negative Rho(D) Type Rh negative Antibody Screen Negative Microbiology 04/17/24 03:00 Urine Culture - Preliminary Urine,Clean Catch Gram Negative Rods Gram Negative Rods#2 04/17/24 01:17 Blood Culture - Preliminary Blood 04/17/24 01:17 Blood Culture - Preliminary Blood Cardiac Studies: 2 No Data to Display
[2024-04-19] MEDS: atenolol 50 mg Tablet 100 MG PO ×2 (09:26→17:37)
[2024-04-19] MEDS: lisinopril 20 mg Tablet PO ×2 (09:26→17:37)
[2024-04-19] MEDS: cloNIDine 0.1 mg Tablet PO ×3 (09:26→20:25)
[2024-04-19] MEDS: bumetanide 0.25 mg/mL SDV 4 mL 1 MG IVP (09:26)
[2024-04-19] MEDS: atorvastatin 40 mg Tablet PO (09:27)
[2024-04-19 12:01] LABS: Glucose Point of Care 305 mg/dL (70-110)
[2024-04-19] MEDS: insulin lispro 100 unit/1 mL SUBCUT ×2 (12:38→17:36)
[2024-04-19] MEDS: nicardipine 20 MG/200 ML PREMIX 25 MG IV (12:39)
--- NOTE | 2024-04-19 13:49 | PM.PN ---
Subjective Subjective: Johanny was admitted to [facility]SU, for significantly elevated blood pressures. She was placed on nicardipine. She was also significantly short of breath. When I saw her this morning she was still significantly short of breath, and I probably ordered some IV Lasix. She is now feeling better, and blood pressure is improved. Medications: Reviewed: Yes Vitals/I&O/Wt Last Vital Signs Temp 98.0 F 04/19/24 12:00 Pulse 82 04/19/24 13:03 Resp 26 H 04/19/24 13:03 BP 155/69 04/19/24 13:03 Pulse Ox 96 04/19/24 12:00 O2 Del Method Nasal Cannula 04/19/24 12:00 O2 Flow Rate 3 04/19/24 08:38 04/18/24 04/19/24 04/19/24 22:59 06:59 14:59 Intake Total 2440 / 3650 50 / 3700 655.833 / 655.833 Output Total 1750 / 1750 400 / 2150 Balance 690 / 1900 -350 / 1550 655.833 / 655.833 Weight last 48 hrs Weight 116.21 kg Weight 116.029 kg Physical Exam Narrative: General Exam no distress, alert and responsive, on 3 L of oxygen Neck is supple Cardiovascular regular rate and rhythm Lungs crackles at the bases Abdomen is soft, nontender Extremities no cyanosis clubbing or edema Urinary Catheter Management: Walters: Cath Placed During This Visit: no Reason for Continuing Indwelling Catheter: Other Data 04/19/24 04:15 04/19/24 04:15 Micro: Microbiology 04/17/24 03:00 Urine Culture - Preliminary Urine,Clean Catch Gram Negative Rods Gram Negative Rods#2 04/17/24 01:17 Blood Culture - Preliminary Blood A&P Assessment and plan (1) Anemia: Patient with multiple imaging studies upon admission, that were not useful in regards to delineation of anemia She has significant iron deficiency, and is very microcytic increasing likelihood of chronic GI blood loss. This should be ruled out first. Consultation with general surgery for potential EGD and colonoscopy She has received 2 units of blood She received 1 iron transfusion Hemoglobin stable today, repeat tomorrow Ibuprofen was a risk factor at home for GI bleeding No stools here to suggest any rapid bleed Awaiting stool Hemoccult Haptoglobin is not low LDH near normal Was planning on EGD and colonoscopy today, but not performed secondary to CHF and instability of patient. Qualifiers: Anemia type: unspecified type Qualified Code(s): D64.9 - Anemia, unspecified (2) Acute kidney injury: This is improved s. She is now at her baseline. Avoid renal toxic medication. (3) UTI (urinary tract infection): Urine growing gram-negative rods. Await ID and sensitivity. Continue IV antibiotics consisting of Zosyn Note that blood cultures 1/4 bottles gram-positive antonio. This is likely contaminant. Await ID and sensitivity (4) Hypomagnesemia: Supplemented, recheck tomorrow (5) Hypertension: Blood pressure higher. Nicardipine was added briefly. Hydralazine, Lasix added and blood pressure improving Qualifiers: Hypertension type: essential hypertension Qualified Code(s): I10 - Essential (primary) hypertension (6) Type 2 diabetes mellitus: Sliding scale insulin When diet is started consistent carb diet Qualifiers: Diabetes mellitus long term care social worker insulin use: without long term care social worker use Diabetes mellitus complication status: with circulatory complication Diabetes mellitus complication detail: with other circulatory complications Qualified Code(s): E11.59 - Type 2 diabetes mellitus with other circulatory complications Plan She has had quite a bit of fluids in the form of blood. Bumex 1 mg IV given this morning. Repeat 0.5 mg IV tonight and check electrolytes and assess need for more diuretic tomorrow. Check echo. Hypokalemia, supplemented recheck tomorrow CHF. Global weakness. Physical therapy seen. Needs nursing facility placement Elevated bilirubin. May be secondary to fluid overload. Diurese and recheck tomorrow. Multiple other medical problems outlined in past medical history Concerns of acute encephalopathy on admission, breath have now normalized SCDs for DVT prophylaxis. No pharmacological anticoagulation secondary to severe anemia Attestations Medical Necessity Statement*: Needs continued hospital stay secondary to development of CHF, hypertensive urgency requiring nicardipine briefly in this patient with significant anemia and electrolyte abnormality. Diagnoses Anemia D64.9 Anemia type: unspecified type Acute kidney injury N17.9 UTI (urinary tract infection) N39.0 Hypomagnesemia E83.42 Essential hypertension I10 Hypertension type: essential hypertension Type 2 diabetes mellitus with other circulatory complication, without long-term current use of insulin E11.59 Diabetes mellitus long term care social worker insulin use: without shelter use Diabetes mellitus complication status: with circulatory complication Diabetes mellitus complication detail: with other circulatory complications Time Spent (min) 36
--- NOTE | 2024-04-19 13:54 | USCV_ITS ---
Johanny Tran Age: 73 Gender: F : 1950 Exam Date: 04/19/2024 15:29 Ordering Phys: Bashir Mckoy MD Technologist: CT Exam Location: [facility] [place] Indication: chf BP: 150 / 59 HR: 83 Rhythm: Sinus Technical Quality: Adequate MEASUREMENTS (Male / Female) Normal Values 2D ECHO LVOT Diameter 2.0 cm LV Ejection Fraction MOD 4C 58.0 % LV Ejection Fraction MOD 2C 50.6 % LV Ejection Fraction 2C AL 51.9 % LA Diameter 4.9 cm RA Systolic Volume 4C AL 64.9 ml RA Systolic Volume 4C MOD 62.8 ml LA Sys Volume AL 100.4 cm cubed LA Sys Volume Index AL 42.3 cm cubed/m squared Aorta at Sinotubular Diameter 2.1 cm IVC Diameter 2.3 cm M-MODE LA Ao Ratio MM 2.8 AV Cusp Separation MM 1.3 cm DOPPLER AV Peak Velocity 222.0 cm/s LVOT Peak Velocity 142.0 cm/s AV Area Cont Eq vti 1.8 cm squared AV Area Cont Eq pk 2.0 cm squared MV Peak Velocity 206.0 cm/s MV Area PHT 4.1 cm squared Mitral E to A Ratio 1.3 TR Peak Velocity 335.0 cm/s TR Peak Gradient 44.9 mmHg Right Atrial Pressure 3.0 mmHg Pulmonary Artery Systolic Pressu 47.9 mmHg PV Peak Velocity 128.0 cm/s FINDINGS Left Ventricle Normal left ventricular size, systolic function, estimated ejection fraction 60% with no regional wall motion abnormalities. Normal left ventricular wall thickness. Grade II/IV diastolic dysfunction, moderately elevated filling pressures. Right Ventricle The right ventricle is normal in size and function. Right Atrium The right atrium is normal in size. Left Atrium Moderately increased left atrial size. Mitral Valve Structurally normal mitral valve without significant stenosis or prolapse. There is no mitral regurgitation. Aortic Valve Severe aortic valve calcification. Mild aortic valve stenosis. Mild aortic valve stenosis, mean gradient 11.8 mmHg, SARAY 1.8 cm squared. Tricuspid Valve Structurally normal tricuspid valve without significant stenosis, mild regurgitation. Pulmonary artery systolic pressure is normal. Pulmonic Valve Structurally normal pulmonic valve without significant stenosis. There is trace pulmonic regurgitation. Pericardium Normal pericardium without effusion. Aorta Normal ascending aorta dimension. IVC The inferior vena cava appears normal. CONCLUSIONS 1-Normal left ventricular size, systolic function, estimated ejection fraction 60% with no regional wall motion abnormalities. Normal left ventricular wall thickness. Grade II/IV diastolic dysfunction, moderately elevated filling pressures. 2-Moderately increased left atrial size 3-Severe aortic valve calcification. Mild aortic valve stenosis. Mild aortic valve stenosis, mean gradient 11.8 mmHg, SARAY 1.8 cm squared. 4-There is no pericardial effusion. 5-Right atrial pressure is around 5 mm of mercury. Moshe Gandara MD (Electronically Signed) Final Date: 19 April 2024 17:14 S
--- NOTE | 2024-04-19 16:35 | P.PN_ITS ---
Subjective 2 Subjective: She was unable to complete a bowel prep last night. This morning she developed hypertension and difficulty breathing and was moved to the [facility]. Denies any abdominal pain still Vitals/I&O/Wt Last Vital Signs Temp 98.0 F 04/19/24 12:00 Pulse 80 04/19/24 16:00 Resp 23 H 04/19/24 16:00 BP 160/83 04/19/24 16:00 Pulse Ox 96 04/19/24 12:00 O2 Del Method Nasal Cannula 04/19/24 12:00 O2 Flow Rate 3 04/19/24 08:38 04/19/24 04/19/24 04/19/24 06:59 14:59 22:59 Intake Total 50 / 3700 655.833 / 655.833 12.833 / 668.666 Output Total 400 / 2150 1000 / 1000 Balance -350 / 1550 -344.167 / -344.167 12.833 / -331.334 Weight last 48 hrs Weight 256 lb 3.2 oz Weight 255 lb 12.8 oz Physical Exam 2 Narrative: General: No acute distress, awake alert and oriented x 3 Abdomen: Soft, nontender, nondistended Urinary Catheter Management: Walters: Cath Placed During This Visit: yes Reason for Continuing Indwelling Catheter: Other Urinary Catheter Date of Insertion: 04/19/24 Urinary Catheter Time of Insertion: 14:04 Data 04/19/24 04:15 04/19/24 04:15 Micro: Microbiology 04/17/24 03:00 Urine Culture - Preliminary Urine,Clean Catch Gram Negative Rods Gram Negative Rods#2 04/17/24 01:17 Blood Culture - Preliminary Blood A&P Assessment and plan (1) Anemia: Qualifiers: Anemia type: unspecified type Qualified Code(s): D64.9 - Anemia, unspecified (2) Colitis: Plan Endoscopy was held out today due to her hypertension and difficulty breathing Continue antibiotics for colitis Plan for endoscopy in the near future Clear liquid diet with plans for endoscopy on Monday I will take stool studies during the colonoscopy Medical management per hospitalist Attestations 2 Medical Necessity Statement*: Per primary Coding Level of Care Code 00245 Diagnoses Anemia D64.9 Anemia type: unspecified type Colitis K52.9
[2024-04-19 17:06] LABS: Glucose Point of Care 217 mg/dL (70-110)
[2024-04-19 20:16] LABS: Glucose Point of Care 274 mg/dL (70-110)
[2024-04-19] MEDS: bumetanide 0.25 mg/mL SDV 4 mL 0.5 MG IVP (20:26)
[2024-04-20] VITALS (45 sets, daily range): BP systolic 125–182; BP diastolic 49–95; PULSE 69–84; RESP 16–32; TEMP 36.5–37; O2SAT 89–100
[2024-04-20] MEDS: sucralfate 1 gm/10 mL Oral Liq UDC PO ×4 (02:54→21:00)
[2024-04-20] MEDS: amlodipine 10 mg Tablet PO (02:54)
[2024-04-20] MEDS: pantoprazole 40 mg SDV IVP ×2 (02:55→14:12)
[2024-04-20] MEDS: nicardipine 20 MG/200 ML PREMIX 50 MG IV ×2 (03:57→08:25)
[2024-04-20 04:59] LABS: Basophils # 0.1 10^3/uL (0.0-0.1); Basophils % 0.3 %; Eosinophils # 0.1 10^3/uL (0.0-0.8); Eosinophils % 0.9 %; Hematocrit 25.3 % (36-47); Lymphocytes # 1.4 10^3/uL (0.8-4.8); Lymphocytes % 9.1 %; Mean Corpuscular HGB Conc 29.2 g/dL (30-55); Mean Corpuscular Hemoglobin 20.6 pg (27-33); Mean Corpuscular Volume 70.3 fl (85-98); Mean Platelet Volume 10.3 fL (7.4-10.4); Monocytes # 1.4 10^3/uL (0.2-0.9); Monocytes % 9.2 %; Neutrophils # 11.68 10^3/uL (1.8-7.7); Neutrophils % 79.3 %; Nucleated Red Blood Cells % 0.2 %; Platelet Count 345 10^3/cmm (157-399); Red Cell Distribution Width 22.6 % (12.1-15.1); White Blood Count 14.76 10^3/uL (3.29-11.43)
[2024-04-20 05:22] LABS: Alanine Aminotransferase 14 U/L (0-33); Albumin Level 3.2 g/dL (3.5-5.2); Alkaline Phosphatase 118 U/L (35-105); Aspartate Amino Transferase 15 U/L (0-32); Blood Urea Nitrogen 13 mg/dL (8-23); Calcium 8.7 mg/dL (8.5-10.5); Carbon Dioxide 22 mmol/L (22-29); Chloride 101 mmol/L (98-107); Creatinine Clr Calc Pharmacy 55.3226; Globulin 3.4 g/dL (1.3-4.6); Glucose 189 mg/dL (65-115); Magnesium 1.5 mg/dL (1.7-2.3); Osmolality Calculated 289 mOsm/kg (285-295); Sodium 137 mmol/L (136-145); Total Bilirubin 2.7 mg/dL (0.15-1.2); Total Protein 6.6 g/dL (6.6-8.7)
[2024-04-20] MEDS: piperacillin-tazobactam 3.375 GM in sodium chloride 0.9% (plus) 50 ML IV ×3 (06:13→21:54)
[2024-04-20 06:27] LABS: Glucose Point of Care 194 mg/dL (70-110)
[2024-04-20] MEDS: atorvastatin 40 mg Tablet PO (07:13)
[2024-04-20] MEDS: cloNIDine 0.1 mg Tablet PO ×3 (07:13→21:00)
[2024-04-20] MEDS: insulin lispro 100 unit/1 mL SUBCUT ×3 (07:13→17:05)
[2024-04-20] MEDS: lisinopril 20 mg Tablet PO ×2 (07:14→17:05)
[2024-04-20] MEDS: atenolol 50 mg Tablet 100 MG PO ×2 (07:14→17:05)
[2024-04-20] MEDS: hyDRALAzine 25 mg Tablet PO ×3 (07:14→21:01)
[2024-04-20 11:18] LABS: Glucose Point of Care 279 mg/dL (70-110)
[2024-04-20] MEDS: bisacodyl 5 mg Tablet 20 MG PO (13:16)
[2024-04-20] MEDS: magnesium citrate Btl 296 mL PO ×2 (13:16→21:00)
--- NOTE | 2024-04-20 15:45 | P.PN_ITS ---
Subjective 2 Subjective: Patient states that she is still feeling a little rough. She denies any chest pain, but does endorse some mild dyspnea. States that she has not had much of an appetite. She denies any blood in her stool. Medications: Reviewed: Yes Vitals/I&O/Wt Last Vital Signs Temp 98.2 F 04/20/24 12:19 Pulse 79 04/20/24 13:30 Resp 27 H 04/20/24 13:30 BP 134/57 04/20/24 14:11 Pulse Ox 94 04/20/24 13:30 O2 Del Method Nasal Cannula 04/20/24 12:19 O2 Flow Rate 3 04/20/24 04:00 04/20/24 04/20/24 04/20/24 06:59 14:59 22:59 Intake Total 267.0 / 1292.000 713.000 / 713.000 Output Total 500 / 2150 Balance -233.0 / -858.000 713.000 / 713.000 Weight last 48 hrs Weight 259 lb 9.6 oz Weight 256 lb 3.2 oz Physical Exam 2 Narrative: General: Cooperative patient in no apparent distress. Well developed. HEENT: Normocephalic, Atraumatic. External ears normal. Nasal passages patent without drainage. MMM. Heart: RRR. Resp: Scattered rales throughout the lung scott. Mild wheezing upper airways. Abd: Soft, non-tender. Non-distended. Bowel sounds present and normal. Extremities: No edema. Skin: No rash or lesions on exposed areas. Urinary Catheter Management: Walters: Cath Placed During This Visit: yes Reason for Continuing Indwelling Catheter: Accurate Measurement of Urinary Output in Critically Ill Patients Urinary Catheter Date of Insertion: 04/19/24 Urinary Catheter Time of Insertion: 14:04 Data 04/20/24 04:00 04/20/24 04:00 Micro: Microbiology 04/17/24 03:00 Urine Culture - Final Urine,Clean Catch Citrobacter koseri Escherichia coli A&P Assessment and plan (1) Anemia: Patient with multiple imaging studies upon admission, that were not useful in regards to delineation of anemia She has significant iron deficiency, and is very microcytic increasing likelihood of chronic GI blood loss. This should be ruled out first. Consultation with general surgery for potential EGD and colonoscopy She has received 2 units of blood She received 1 iron transfusion Hemoglobin stable today, repeat tomorrow Ibuprofen was a risk factor at home for GI bleeding No stools here to suggest any rapid bleed Awaiting stool Hemoccult Haptoglobin is not low LDH near normal Was planning on EGD and colonoscopy today, but not performed secondary to CHF and instability of patient. Qualifiers: Anemia type: unspecified type Qualified Code(s): D64.9 - Anemia, unspecified (2) Acute kidney injury: This is improved s. She is now at her baseline. Avoid renal toxic medication. (3) UTI (urinary tract infection): Urine growing gram-negative rods. Await ID and sensitivity. Continue IV antibiotics consisting of Zosyn Note that blood cultures 1/4 bottles gram-positive antonio. This is likely contaminant. Await ID and sensitivity (4) Hypomagnesemia: Supplemented, recheck tomorrow (5) Hypertension: Blood pressure higher. Nicardipine was added briefly. Hydralazine, Lasix added and blood pressure improving Qualifiers: Hypertension type: essential hypertension Qualified Code(s): I10 - Essential (primary) hypertension (6) Type 2 diabetes mellitus: Sliding scale insulin When diet is started consistent carb diet Qualifiers: Diabetes mellitus skilled nursing insulin use: without skilled nursing use Diabetes mellitus complication status: with circulatory complication Diabetes mellitus complication detail: with other circulatory complications Qualified Code(s): E 11.59 - Type 2 diabetes mellitus with other circulatory complications Plan PLAN FOR TODAY: Continue close inpatient monitoring. Continues to complain of some weakness and mild dyspnea. She denies any chest pain at this time. She denies any further episodes of melena or hematochezia. WBC count has trended down, currently at 14.76. Potassium is currently at 3.0. We will replace and recheck tomorrow. magnesium low at 1.5. will replace and recheck. Bilirubin remains elevated to 2.7. It is down from 2.9. Will monitor for now. Recheck a.m. labs. Continue sliding scale insulin and carb consistent diet. Blood pressure is currently stable. Continue current medications. Urine culture is growing Citrobacter as well as E. coli. Both are susceptible to Zosyn. We will continue for now. Tomorrow we will transition to oral medications prior to discharge. Blood cultures are currently negative today. General surgery is consulted. Plan for EGD and colonoscopy while inpatient, or possibly outpatient after discharge. Code Status: Full IVF: None DVT PPx: SCDs GI PPx: Protonix, sucralfate ABx: Zosyn Diet: Clear liquid Discharge plan: SNF Attestations 2 Medical Necessity Statement*: Needs continued hospital stay secondary to development of CHF, hypertensive urgency requiring nicardipine briefly in this patient with significant anemia and electrolyte abnormality and replacement, and treatment of UTI. Coding Level of Care Code Acute Code for Chg Fwd Moderate MDM includes number and complexity of problems actively addressed during encounter, amount and/or complexity of data reviewed/ordered and described risk of complication, morbidity or mortality of management as documented Diagnoses Anemia D64.9 Anemia type: unspecified type Acute kidney injury N17.9 UTI (urinary tract infection) N39.0 Hypomagnesemia E83.42 Essential hypertension I10 Hypertension type: essential hypertension Type 2 diabetes mellitus with other circulatory complication, without long-term current use of insulin E11.59 Diabetes mellitus skilled nursing insulin use: without skilled nursing use Diabetes mellitus complication status: with circulatory complication Diabetes mellitus complication detail: with other circulatory complications
[2024-04-20] MEDS: magnesium lactate 84 mg Tablet PO (17:05)
[2024-04-20] MEDS: potassium chloride ER 20 mEq Tablet 40 MEQ PO (17:05)
--- NOTE | 2024-04-20 17:07 | P.PN_ITS ---
Subjective 2 Subjective: Patient seen and examined. No new complaints. Denies any abdominal pain Vitals/I&O/Wt Last Vital Signs Temp 98.0 F 04/20/24 16:00 Pulse 77 04/20/24 16:00 Resp 18 04/20/24 16:00 BP 126/49 04/20/24 16:00 Pulse Ox 91 04/20/24 16:00 O2 Del Method Nasal Cannula 04/20/24 16:00 O2 Flow Rate 3 04/20/24 04:00 04/20/24 04/20/24 04/20/24 06:59 14:59 22:59 Intake Total 267.0 / 1292.000 713.000 / 713.000 Output Total 500 / 2150 Balance -233.0 / -858.000 713.000 / 713.000 Weight last 48 hrs Weight 259 lb 9.6 oz Weight 256 lb 3.2 oz Physical Exam 2 Narrative: General: No acute distress, awake alert and oriented x 3 Abdomen: Soft, nontender, nondistended Urinary Catheter Management: Walters: Cath Placed During This Visit: yes Reason for Continuing Indwelling Catheter: Accurate Measurement of Urinary Output in Critically Ill Patients Urinary Catheter Date of Insertion: 04/19/24 Urinary Catheter Time of Insertion: 14:04 Data 04/20/24 04:00 04/20/24 04:00 Micro: Microbiology 04/17/24 03:00 Urine Culture - Final Urine,Clean Catch Citrobacter koseri Escherichia coli A&P Assessment and plan (1) Anemia: Qualifiers: Anemia type: unspecified type Qualified Code(s): D64.9 - Anemia, unspecified (2) Colitis: Plan EGD Colonoscopy The risks and benefits of the procedure, including bleeding, infection, intestinal perforation requiring surgery, missed lesion were explained to the patient. The patient is understanding of the risks and wishes to proceed. Clear liquid diet and bowel prep with plans for endoscopy on Monday I will take stool studies during the colonoscopy Medical management per hospitalist Attestations 2 Medical Necessity Statement*: per primary Coding Level of Care Code 51509 Diagnoses Anemia D64.9 Anemia type: unspecified type Colitis K52.9
[2024-04-20 17:10] LABS: Glucose Point of Care 296 mg/dL (70-110)
[2024-04-20 21:27] LABS: Glucose Point of Care 232 mg/dL (70-110)
[2024-04-21] VITALS (16 sets, daily range): BP systolic 124–169; BP diastolic 51–95; PULSE 72–83; RESP 18–28; TEMP 36.4–36.9; O2SAT 92–100
[2024-04-21] MEDS: pantoprazole 40 mg SDV IVP ×2 (02:44→14:05)
[2024-04-21] MEDS: sucralfate 1 gm/10 mL Oral Liq UDC PO ×4 (02:44→20:54)
[2024-04-21] MEDS: amlodipine 10 mg Tablet PO (02:45)
[2024-04-21] MEDS: piperacillin-tazobactam 3.375 GM in sodium chloride 0.9% (plus) 50 ML IV ×3 (05:57→22:51)
[2024-04-21 06:26] LABS: Glucose Point of Care 256 mg/dL (70-110)
--- NOTE | 2024-04-21 07:44 | P.ANESUD_ITS ---
Pre-Anesthetic Update Pre-Anesthetic Assessment: Date of Surgery/Procedure: 04/21/24 Preop Leah gnosis: Anemia Proposed Procedure: Operation Date: 04/19/24 12:30 Proposed Procedures p EGD(Not Applicable) - Juan José Jarvis, DO s Colonoscopy(Not Applicable) - Juan José Jarvis DO Operation Date: 04/21/24 08:10 Proposed Procedures p EGD(Not Applicable) - Juan José Jarvis, DO s Colonoscopy(Not Applicable) - Juan José Jarvis, DO Any changes to Pre-Anesthetic Assessment?: No Labs Last 48hrs: Short CBC 04/20/24 Range/Units 04:00 WBC 14.76 H (3.29-11.43) 10^ 3/uL Hgb 7.40 L (11.27-16.99) g/ dL Hct 25.3 L (36-47) % MCV 70.3 L (85-98) fl Plt Count 345 (157-399) 10^3/c mm Neut % (Auto) 79.3 % Neut # (Auto) 11.68 H (1.8-7.7) 10^3/u L BMP 04/20/24 04:00 Sodium 137 Potassium 3.0 L Chloride 101 Carbon Dioxide 22 BUN 13 Creatinine 1.1 H Glucose 189 H Calcium 8.7 Liver Function 04/20/24 Range/Units 04:00 Total Bilirubin 2.7 H (0.15-1.2) mg/dL AST 15 (0-32) U/L ALT 14 (0-33) U/L Alkaline Phosphata se 118 H (35-105) U/L Albumin 3.2 L (3.5-5.2) g/dL Vitals: Temperature 98.5 F 04/21/24 07:20 Temperature Source Temporal Artery S can 04/21/24 07:20 Pulse Rate 83 04/21/24 07:20 Pulse Rhythm Regular 04/19/24 20:00 Pulse Strength 2+ Slightly Dimin ished 04/20/24 20:00 Respiratory Rate 18 04/21/24 07:20 Respiratory Effort Spontaneous, Non- Labored 04/20/24 20:00 Respiratory Depth Normal 04/20/24 20:00 Respiratory Patter n Normal 04/17/24 21:26 Blood Pressure 158/63 04/21/24 07:20 Blood Pressure Glenda n 94 04/21/24 07:20 Blood Pressure Pos ition Left Lateral 04/21/24 04:00 Pulse Oximetry 92 04/21/24 07:20 Oxygen Delivery Me thod Nasal Cannula 04/21/24 07:20 Oxygen Flow Rate 4 04/21/24 07:20 Exam: Pre-Anes Outpt Exam: alert, oriented x 3, clear to auscultation bilaterally and regular rate & rhythm Cardiac Studies: Echocardiogram 04/19/24
[2024-04-21] MEDS: sodium chloride 0.9% 1,000 ML 30 ML IV (07:47)
--- NOTE | 2024-04-21 07:53 | P.PN_ITS ---
Vitals/I&O/Wt Last Vital Signs Temp 98.0 F 04/21/24 07:46 Pulse 81 04/21/24 07:46 Resp 26 H 04/21/24 07:46 BP 162/56 04/21/24 07:46 Pulse Ox 94 04/21/24 07:46 O2 Del Method Nasal Cannula 04/21/24 07:46 O2 Flow Rate 4 04/21/24 07:20 04/20/24 04/21/24 04/21/24 22:59 06:59 14:59 Intake Total 168 / 881.000 50 / 931.000 Output Total 300 / 300 350 / 650 Balance -132 / 581.000 -300 / 281.000 Weight last 48 hrs Weight 252 lb 4.8 oz Weight 259 lb 9.6 oz Physical Exam 2 Urinary Catheter Management: Walters: Cath Placed During This Visit: yes Reason for Continuing Indwelling Catheter: Accurate Measurement of Urinary Output in Critically Ill Patients Urinary Catheter Date of Insertion: 04/19/24 Urinary Catheter Time of Insertion: 14:04 Data 04/20/24 04:00 04/20/24 04:00 Micro: Microbiology 04/17/24 03:00 Urine Culture - Final Urine,Clean Catch Citrobacter koseri Escherichia coli A&P Assessment and plan (1) Anemia: Qualifiers: Anemia type: unspecified type Qualified Code(s): D64.9 - Anemia, unspecified (2) Colitis: Plan EGD Colonoscopy The risks and benefits of the procedure, including bleeding, infection, intestinal perforation requiring surgery, missed lesion were explained to the patient. The patient is understanding of the risks and wishes to proceed. Clear liquid diet and bowel prep with plans for endoscopy on Monday I will take stool studies during the colonoscopy Medical management per hospitalist Attestations 2 Medical Necessity Statement*: PER PRIMARY Coding Level of Care Code Acute Code for Chg Fwd Diagnoses Anemia D64.9 Anemia type: unspecified type Colitis K52.9
--- NOTE | 2024-04-21 07:56 | PC.NURSE ---
off unit to gi lab for EGD
--- NOTE | 2024-04-21 08:40 | ANE.PACU2 ---
Inpatient post-anesthesia follow up: Airway intact: Yes Vital signs: Temperature 97.5 F Pulse Rate 74 Respiratory Rate 23 Blood Pressure 134/95 Pulse Oximetry 95 Oxygen Delivery Me thod [Rate & Nasal Cannula Delivery Changed T o] Oxygen Delivery Me thod [ Nasal Cannula Current Rate & Del queenie] Oxygen Delivery Me thod Nasal Cannula Oxygen Flow Rate [ Rate & 3 Delivery Changed T o] Oxygen Flow Rate [ Current Rate 3 & Delivery] Oxygen Flow Rate 4 Fraction of Inspir ed Oxygen Hydration adequate: Yes Nausea and vomiting: No Pain level: 1 Mental status: Baseline
[2024-04-21] MEDS: atenolol 50 mg Tablet 100 MG PO ×2 (09:47→18:20)
[2024-04-21] MEDS: hyDRALAzine 25 mg Tablet PO ×3 (09:47→20:53)
[2024-04-21] MEDS: atorvastatin 40 mg Tablet PO (09:47)
[2024-04-21] MEDS: potassium chloride ER 20 mEq Tablet 40 MEQ PO (09:48)
[2024-04-21] MEDS: cloNIDine 0.1 mg Tablet PO ×3 (09:48→20:53)
[2024-04-21] MEDS: lisinopril 20 mg Tablet PO ×2 (09:48→18:21)
[2024-04-21 10:58] LABS: Basophils # 0.1 10^3/uL (0.0-0.1); Basophils % 0.6 %; Eosinophils # 0.3 10^3/uL (0.0-0.8); Eosinophils % 1.9 %; Hematocrit 25.8 % (36-47); Lymphocytes # 0.9 10^3/uL (0.8-4.8); Lymphocytes % 6.6 %; Mean Corpuscular HGB Conc 29.1 g/dL (30-55); Mean Corpuscular Hemoglobin 20.5 pg (27-33); Mean Corpuscular Volume 70.7 fl (85-98); Mean Platelet Volume 9.9 fL (7.4-10.4); Monocytes # 0.9 10^3/uL (0.2-0.9); Monocytes % 6.5 %; Neutrophils # 11.56 10^3/uL (1.8-7.7); Nucleated Red Blood Cells % 0.1 %; Platelet Count 359 10^3/cmm (157-399); Red Blood Count 3.65 10^6/uL (3.85-5.65); Red Cell Distribution Width 24.8 % (12.1-15.1); White Blood Count 13.92 10^3/uL (3.29-11.43)
[2024-04-21 11:09] LABS: Alanine Aminotransferase 12 U/L (0-33); Albumin Level 3.1 g/dL (3.5-5.2); Alkaline Phosphatase 159 U/L (35-105); Anion Gap 17.4 (5-19); Aspartate Amino Transferase 23 U/L (0-32); Blood Urea Nitrogen 21 mg/dL (8-23); Calcium 8.3 mg/dL (8.5-10.5); Carbon Dioxide 21 mmol/L (22-29); Chloride 102 mmol/L (98-107); Ferritin 100 ng/mL (15-150); Globulin 3.7 g/dL (1.3-4.6); Glucose 309 mg/dL (65-115); Iron 20 ug/dL (37-145); Osmolality Calculated 299 mOsm/kg (285-295); Potassium 3.4 mmol/L (3.5-5.1); Sodium 137 mmol/L (136-145); Total Bilirubin 2.5 mg/dL (0.15-1.2); Total Protein 6.8 g/dL (6.6-8.7)
[2024-04-21 11:10] LABS: Creatinine Clr Calc Pharmacy 54.8289
[2024-04-21 11:49] LABS: Glucose Point of Care 313 mg/dL (70-110)
[2024-04-21] MEDS: insulin lispro 100 unit/1 mL SUBCUT ×2 (13:54→18:21)
[2024-04-21 17:39] LABS: Glucose Point of Care 212 mg/dL (70-110)
--- NOTE | 2024-04-21 18:31 | PM.PN ---
Subjective Subjective: Patient went for colonoscopy and EGD this morning. No acute findings were noted. She says she is a little tired from this morning's events. She denies pain at this time. Medications: Reviewed: Yes Vitals/I&O/Wt Last Vital Signs Temp 97.8 F 04/21/24 16:00 Pulse 76 04/21/24 16:00 Resp 23 H 04/21/24 16:00 BP 134/56 04/21/24 16:00 Pulse Ox 94 04/21/24 16:00 O2 Del Method Nasal Cannula 04/21/24 16:00 O2 Flow Rate 4 04/21/24 08:42 04/21/24 04/21/24 04/21/24 06:59 14:59 22:59 Intake Total 50 / 931.000 970 / 970 50 / 1020 Output Total 350 / 650 Balance -300 / 281.000 970 / 970 50 / 1020 Weight last 48 hrs Weight 252 lb 4.8 oz Weight 259 lb 9.6 oz Physical Exam Narrative: General: Cooperative patient in no apparent distress. Well developed. HEENT: Normocephalic, Atraumatic. External ears normal. Nasal passages patent without drainage. MMM. Heart: RRR. Resp: Scattered rales throughout the lung scott. Mild wheezing upper airways. Abd: Soft, non-tender. Non-distended. Bowel sounds present and normal. Extremities: No edema. Skin: No rash or lesions on exposed areas. Urinary Catheter Management: Walters: Cath Placed During This Visit: yes Reason for Continuing Indwelling Catheter: Accurate Measurement of Urinary Output in Critically Ill Patients Urinary Catheter Date of Insertion: 04/19/24 Urinary Catheter Time of Insertion: 14:04 Data 04/21/24 10:31 04/21/24 10:31 Micro: Microbiology 04/17/24 01:17 Blood Culture - Preliminary Blood Corynebacterium species 04/17/24 01:17 Blood Culture - Preliminary Blood Corynebacterium species A&P Assessment and plan (1) Anemia: Qualifiers: Anemia type: unspecified type Qualified Code(s): D64.9 - Anemia, unspecified (2) Acute kidney injury: (3) UTI (urinary tract infection): (4) Hypomagnesemia: (5) Hypertension: Qualifiers: Hypertension type: essential hypertension Qualified Code(s): I10 - Essential (primary) hypertension (6) Type 2 diabetes mellitus: Qualifiers: Diabetes mellitus medical terminologist insulin use: without medical terminologist use Diabetes mellitus complication status: with circulatory complication Diabetes mellitus complication detail: with other circulatory complications Qualified Code(s): E11.59 - Type 2 diabetes mellitus with other circulatory complications Plan PLAN FOR TODAY: Continue close inpatient monitoring. General surgery consulted. Patient went for EGD and colonoscopy this morning. No acute bleeds were identified. Stool samples and biopsies were obtained and pending. She denies any further episodes of melena or hematochezia. Will advance diet as tolerated. She is currently on clear liquids. WBC count has trended down to 13.9. Continue Zosyn. Potassium was replaced yesterday. Currently at 3.4. Recheck magnesium in the morning. Bilirubin down to 2.5. Creatinine is stable at 1.1. Recheck a.m. labs. Continue sliding scale insulin and carb consistent diet. Blood pressure is currently stable. Continue current medications. Urine culture is growing Citrobacter as well as E. coli. Both are susceptible to Zosyn. We will continue for now. Continue Accu-Cheks and sliding scale insulin for treatment of her diabetes. Continue GI prophylaxis/treatment with Protonix and sucralfate. Code Status: Full IVF: None DVT PPx: SCDs GI PPx: Protonix, sucralfate ABx: Zosyn Diet: Clear liquid Discharge plan: SNF Attestations Medical Necessity Statement*: Needs continued hospital stay secondary to development of CHF, hypertensive urgency requiring nicardipine briefly in this patient with significant anemia and electrolyte abnormality and replacement, and treatment of UTI. Coding Level of Care Code Acute Code for Chg Fwd Moderate MDM includes number and complexity of problems actively addressed during encounter, amount and/or complexity of data reviewed/ordered and described risk of complication, morbidity or mortality of management as documented Diagnoses Anemia D64.9 Anemia type: unspecified type Acute kidney injury N17.9 UTI (urinary tract infection) N39.0 Hypomagnesemia E83.42 Essential hypertension I10 Hypertension type: essential hypertension Type 2 diabetes mellitus with other circulatory complication, without long-term current use of insulin E11.59 Diabetes mellitus medical terminologist insulin use: without medical terminologist use Diabetes mellitus complication status: with circulatory complication Diabetes mellitus complication detail: with other circulatory complications
[2024-04-21 20:09] LABS: Glucose Point of Care 222 mg/dL (70-110)
[2024-04-22] VITALS (19 sets, daily range): BP systolic 118–174; BP diastolic 53–70; PULSE 68–78; RESP 16–30; TEMP 36.6–36.8; O2SAT 82–99
[2024-04-22] MEDS: sucralfate 1 gm/10 mL Oral Liq UDC PO ×3 (03:41→21:15)
[2024-04-22] MEDS: amlodipine 10 mg Tablet PO (03:41)
[2024-04-22] MEDS: pantoprazole 40 mg SDV IVP ×2 (03:42→18:49)
[2024-04-22 04:10] LABS: Basophils # 0.1 10^3/uL (0.0-0.1); Basophils % 0.6 %; Eosinophils # 0.7 10^3/uL (0.0-0.8); Eosinophils % 5.7 %; Hematocrit 25.4 % (36-47); Lymphocytes # 1.4 10^3/uL (0.8-4.8); Lymphocytes % 12.1 %; Mean Corpuscular HGB Conc 29.1 g/dL (30-55); Mean Corpuscular Hemoglobin 20.9 pg (27-33); Mean Corpuscular Volume 71.8 fl (85-98); Mean Platelet Volume 10.3 fL (7.4-10.4); Monocytes # 0.7 10^3/uL (0.2-0.9); Monocytes % 5.7 %; Neutrophils # 8.72 10^3/uL (1.8-7.7); Neutrophils % 74.8 %; Nucleated Red Blood Cells % 0.2 %; Platelet Count 342 10^3/cmm (157-399); Red Blood Count 3.54 10^6/uL (3.85-5.65); Red Cell Distribution Width 25.4 % (12.1-15.1); White Blood Count 11.66 10^3/uL (3.29-11.43)
[2024-04-22 04:38] LABS: Alanine Aminotransferase 10 U/L (0-33); Albumin Level 2.9 g/dL (3.5-5.2); Alkaline Phosphatase 141 U/L (35-105); Anion Gap 16.5 (5-19); Aspartate Amino Transferase 12 U/L (0-32); Blood Urea Nitrogen 23 mg/dL (8-23); Calcium 8.6 mg/dL (8.5-10.5); Carbon Dioxide 22 mmol/L (22-29); Chloride 102 mmol/L (98-107); Creatinine Clr Calc Pharmacy 50.2599; Globulin 3.6 g/dL (1.3-4.6); Glucose 185 mg/dL (65-115); Osmolality Calculated 292 mOsm/kg (285-295); Potassium 3.5 mmol/L (3.5-5.1); Sodium 137 mmol/L (136-145); Total Protein 6.5 g/dL (6.6-8.7)
[2024-04-22] MEDS: piperacillin-tazobactam 3.375 GM in sodium chloride 0.9% (plus) 50 ML IV (06:13)
[2024-04-22 06:55] LABS: Glucose Point of Care 236 mg/dL (70-110)
[2024-04-22] MEDS: hyDRALAzine 25 mg Tablet PO ×3 (08:56→21:16)
[2024-04-22] MEDS: atorvastatin 40 mg Tablet PO (08:56)
[2024-04-22] MEDS: atenolol 50 mg Tablet 100 MG PO ×2 (08:56→18:49)
[2024-04-22] MEDS: insulin lispro 100 unit/1 mL SUBCUT ×3 (09:21→18:49)
[2024-04-22] MEDS: bumetanide 0.25 mg/mL SDV 4 mL 1 MG IVP ×3 (09:21→19:56)
[2024-04-22] MEDS: cloNIDine 0.1 mg Tablet PO ×2 (09:32→21:15)
[2024-04-22] MEDS: potassium chloride ER 20 mEq Tablet 40 MEQ PO (09:32)
--- NOTE | 2024-04-22 09:52 | XR_ITS ---
WS: [id number] XR chest 1V portable [id number] REASON FOR EXAM: Shortness of Breath FINDINGS: Moderate tortuosity of the thoracic aorta. Mild cardiomegaly. Prominent pulmonary veins centrally. Interstitial reticular and groundglass opacities in both lower lung scott. Fissural pleural fluid no rekha bilaterally. Mild degenerative spondylosis of the thoracic spine. Severe osteoarthritis of the right glenohumeral joint with previous rotator cuff tendon repair and ac romial humeral head relation indicating complete tear of the rotator cuff tendon. XR/XR chest 1V portable [id number] IMPRESSION: Chest abnormality most compatible with congestive heart failure. Right shoulder arthropathy as above.
--- NOTE | 2024-04-22 11:55 | PC.SOCIAL ---
IMM Updated Updated pt on IMM. No questions voiced. Provided pt a copy. Initialed, dated, & timed copy in chart.
[2024-04-22 12:51] LABS: Glucose Point of Care 237 mg/dL (70-110)
--- NOTE | 2024-04-22 13:20 | P.PN_ITS ---
Subjective 2 Subjective: Patient has increased work of breathing Given 2 mg of IV Bumex today X-ray showing vascular congestion Patient has 3 L of oxygen on with with saturation of up to 95% No active chest pain Walters catheter in place Patient is wheelchair dependent Awaiting care home placement Discontinue IV antibiotics Vitals/I&O/Wt Last Vital Signs Temp 98.0 F 04/22/24 07:57 Pulse 77 04/22/24 07:57 Resp 16 04/22/24 07:57 BP 148/59 04/22/24 07:57 Pulse Ox 82 L 04/22/24 09:56 O2 Del Method Nasal Cannula 04/22/24 08:00 O2 Flow Rate 3 04/22/24 09:56 04/21/24 04/22/24 04/22/24 22:59 06:59 14:59 Intake Total 110 / 1080 50 / 1130 286 / 286 Output Total 650 / 650 500 / 1150 150 / 150 Balance -540 / 430 -450 / -20 136 / 136 Weight last 48 hrs Weight 114.441 kg Weight 114.441 kg Physical Exam 2 Narrative: Increased work of breathing Saturating well on 3 L Respiratory rate is around 20-25 Bilateral breath sounds with rhonchi GCS 15 Lower extremity swelling noted Abdomen soft S1, S2 without signs of tachycardia No active complaints Urinary Catheter Management: Walters: Cath Placed During This Visit: yes Reason for Continuing Indwelling Catheter: Accurate Measurement of Urinary Output in Critically Ill Patients Urinary Catheter Date of Insertion: 04/19/24 Urinary Catheter Time of Insertion: 14:04 Data 04/22/24 03:12 04/22/24 03:12 Micro: Microbiology 04/17/24 01:17 Blood Culture - Preliminary Blood Corynebacterium species 04/17/24 01:17 Blood Culture - Preliminary Blood Corynebacterium species A&P Assessment and plan (1) Anemia: Qualifiers: Anemia type: unspecified type Qualified Code(s): D64.9 - Anemia, unspecified (2) Acute kidney injury: (3) UTI (urinary tract infection): (4) Hypomagnesemia: (5) Hypertension: Qualifiers: Hypertension type: essential hypertension Qualified Code(s): I10 - Essential (primary) hypertension (6) Type 2 diabetes mellitus: Qualifiers: Diabetes mellitus intermediate teacher insulin use: without nursing home use Diabetes mellitus complication status: with circulatory complication Diabetes mellitus complication detail: with other circulatory complications Qualified Code(s): E 11.59 - Type 2 diabetes mellitus with other circulatory complications Plan Acute preserved ejection fraction heart failure exacerbation 2 mg of IV Bumex given this morning Will keep her hemoglobin above 8, will request another unit of blood Will give another Bumex in the nighttime Monitor blood pressure Increased work of breathing secondary to CHF exacerbation Continue IV diuresis Hypertensive emergency: Cardene drip has been weaned off Patient takes atenolol clonidine, hydrochlorothiazide, will need optimization of antihypertensive regimen and ideally taper/wean off clonidine Hypoxia: Requiring 3 L of oxygen downgraded from 5 L Patient is wheelchair dependent, awaiting care home placement UTI: Discontinue meropenem and use Macrobid for now Full code Awaiting nursing on placement Anemia: Status post blood transfusion, another unit of blood today EGD colonoscopy done on Monday Hemorrhoids with diverticulosis Patient will need iron supplementation along bowel regimen at the time of discharge Attestations 2 Medical Necessity Statement*: Discharge likely by tomorrow Diagnoses Anemia D64.9 Anemia type: unspecified type Acute kidney injury N17.9 UTI (urinary tract infection) N39.0 Hypomagnesemia E83.42 Essential hypertension I10 Hypertension type: essential hypertension Type 2 diabetes mellitus with other circulatory complication, without long-term current use of insulin E11.59 Diabetes mellitus intermediate teacher insulin use: without intermediate teacher use Diabetes mellitus complication status: with circulatory complication Diabetes mellitus complication detail: with other circulatory complications
--- NOTE | 2024-04-22 15:10 | PC.OT ---
OT TREATMENT HELD DUE TO SCHEDULED PATIENT D/C
[2024-04-22 15:45] LABS: ABG PCO2 31.2 mmHg (35-45); ABG PH Result 7.47 (7.35-7.45); Alveolar-Arterial Oxygen Gradi 17.6 mmHg (5-10); Arterial Blood Gas Hematocrit 22.3 % (37-47); Base Excess ABG -1.1 mmol/L (-2.0-2.0); Blood Gas Operator Identificat AMH; Blood Gas Sample Site Brachial, right; Blood Gas Sample Type Arterial; Carboxyhemoglobin 1.6 %THgb (0.4-20.1); HCO3 ABG 22.4 mmol/L (22-26); HGB O2 Sat 87.9 % (95-100); Ionized Calcium Level - ABG 1.2 mmol/L (1.1-1.4); Methemoglobin 1.3 % (0.4-1.5); Oxygen Device NC; Oxygen Saturation ABG 90.5; PO2 ABG 54.2 mmHg (80.0-100.0); PO2 FiO2 Ratio Arterial Blood 169; Potassium Level - ABG 3.5 mmol/L (3.5-5.0); Total Hemoglobin 7.3 g/dL (12-16)
--- NOTE | 2024-04-22 17:50 | PC.NURSE ---
Pt IV started to leak. attempted to get a new access but was unsuccessful. we will try again.
[2024-04-22 17:51] LABS: Glucose Point of Care 254 mg/dL (70-110)
[2024-04-22] MEDS: nitrofurantoin SR (BID) 100 mg Capsule PO (18:49)
[2024-04-22 20:21] LABS: Glucose Point of Care 224 mg/dL (70-110)
[2024-04-23] VITALS (15 sets, daily range): BP systolic 94–182; BP diastolic 54–71; PULSE 65–113; RESP 15–33; TEMP 35.7–37; O2SAT 89–99
[2024-04-23] MEDS: sucralfate 1 gm/10 mL Oral Liq UDC PO ×3 (03:38→20:21)
[2024-04-23] MEDS: amlodipine 10 mg Tablet PO (03:38)
[2024-04-23 03:49] LABS: Basophils # 0.1 10^3/uL (0.0-0.1); Basophils % 0.7 %; Eosinophils # 0.3 10^3/uL (0.0-0.8); Eosinophils % 2.6 %; Hematocrit 30.4 % (36-47); Lymphocytes # 0.9 10^3/uL (0.8-4.8); Lymphocytes % 6.5 %; Mean Corpuscular HGB Conc 29.6 g/dL (30-55); Mean Platelet Volume 9.8 fL (7.4-10.4); Monocytes # 0.7 10^3/uL (0.2-0.9); Monocytes % 5.3 %; Neutrophils # 11.15 10^3/uL (1.8-7.7); Neutrophils % 83.6 %; Nucleated Red Blood Cells % 0.3 %; Platelet Count 447 10^3/cmm (157-399); Red Blood Count 4.28 10^6/uL (3.85-5.65); Red Cell Distribution Width 25.4 % (12.1-15.1); White Blood Count 13.32 10^3/uL (3.29-11.43)
[2024-04-23 04:12] LABS: Anion Gap 17.5 (5-19); Blood Urea Nitrogen 23 mg/dL (8-23); Calcium 8.7 mg/dL (8.5-10.5); Carbon Dioxide 21 mmol/L (22-29); Chloride 101 mmol/L (98-107); Creatinine Clr Calc Pharmacy 50.2599; Glucose 263 mg/dL (65-115); Osmolality Calculated 295 mOsm/kg (285-295); Potassium 3.5 mmol/L (3.5-5.1); Sodium 136 mmol/L (136-145)
[2024-04-23] MEDS: bumetanide 0.25 mg/mL SDV 4 mL 1 MG IVP ×2 (06:12→18:36)
[2024-04-23] MEDS: pantoprazole 40 mg SDV IVP ×2 (06:13→18:36)
[2024-04-23 06:21] LABS: Glucose Point of Care 268 mg/dL (70-110)
--- NOTE | 2024-04-23 08:02 | PC.NURSE ---
pt noted to be sitting up in edge of bed without her oxygen on. Pt looked short of breath and occasionally dry coughing. applied 3 LNC back.
[2024-04-23] MEDS: nitrofurantoin SR (BID) 100 mg Capsule PO ×2 (08:04→17:21)
[2024-04-23] MEDS: atorvastatin 40 mg Tablet PO (08:04)
[2024-04-23] MEDS: insulin lispro 100 unit/1 mL SUBCUT ×3 (08:05→17:22)
[2024-04-23] MEDS: potassium chloride ER 20 mEq Tablet 40 MEQ PO (08:05)
[2024-04-23] MEDS: hyDRALAzine 25 mg Tablet PO ×4 (08:05→20:23)
[2024-04-23] MEDS: cloNIDine 0.1 mg Tablet PO ×3 (08:05→20:21)
[2024-04-23] MEDS: atenolol 50 mg Tablet 100 MG PO ×2 (08:05→17:21)
[2024-04-23 11:42] LABS: Glucose Point of Care 291 mg/dL (70-110)
--- NOTE | 2024-04-23 12:07 | PM.PN ---
Subjective Subjective: Patient this morning is breathing 28 to 30 breaths/min Endorsing labored breathing Have decided to not discharge her today Continue diuresis and use BiPAP overnight Creatinine 1.2 Hemoglobin around 9 Hemodynamically stable Patient use bedside commode currently on 3 L oxygen Vitals/I&O/Wt Last Vital Signs Temp 97.9 F 04/23/24 11:40 Pulse 75 04/23/24 11:40 Resp 20 H 04/23/24 11:40 BP 140/57 04/23/24 11:40 Pulse Ox 93 04/23/24 11:40 O2 Del Method Nasal Cannula 04/23/24 11:40 O2 Flow Rate 2 04/23/24 11:40 04/22/24 04/23/24 04/23/24 22:59 06:59 14:59 Intake Total 486 / 1008 480 / 480 Output Total 1800 / 1950 Balance -1314 / -942 480 / 480 Weight last 48 hrs Weight 114.441 kg Weight 114.441 kg Physical Exam Narrative: Morbidly obese Awake and alert Labored breathing No active chest pain Currently on 2 to 3 L of nasal cannula Normotensive Variable S1-S2 Sign of fluid overload present None tender abdomen I do not hear active wheezing or crackles Urinary Catheter Management: Walters: Cath Placed During This Visit: yes Reason for Continuing Indwelling Catheter: Other Urinary Catheter Date of Insertion: 04/19/24 Urinary Catheter Time of Insertion: 14:04 Data 04/23/24 03:32 04/23/24 03:32 Micro: Microbiology 04/17/24 01:17 Blood Culture - Final Blood Corynebacterium species 04/17/24 01:17 Blood Culture - Final Blood Corynebacterium species A&P Assessment and plan (1) Anemia: Qualifiers: Anemia type: unspecified type Qualified Code(s): D64.9 - Anemia, unspecified (2) Acute kidney injury: (3) UTI (urinary tract infection): (4) Hypomagnesemia: (5) Hypertension: Qualifiers: Hypertension type: essential hypertension Qualified Code(s): I10 - Essential (primary) hypertension (6) Type 2 diabetes mellitus: 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: without [place] use Diabetes mellitus complication status: with circulatory complication Diabetes mellitus complication detail: with other circulatory complications Qualified Code(s): E11.59 - Type 2 diabetes mellitus with other circulatory complications Plan Acute preserved ejection fraction heart failure exacerbation Required blood transfusion during hospitalization I will keep her on diuresis for now Hold off on removing Walters catheter Labored breathing Will request BiPAP for tonight and continue diuresis X-ray consistent with vascular congestion ABG yesterday was unremarkable consistent with respiratory alkalosis Macrocytic acute anemia Status post blood transfusion Patient may need capsule endoscopy outpatient and hematology referral No active source of GI bleed identified Patient will need care home placement once her breathing gets better Full code Daughter updated yesterday Currently patient is on 2 L of oxygen, hypoxia has not worsened Patient seems to be very deconditioned Acute on chronic kidney disease: Creatinine seems to be at baseline with diuresis now Attestations Medical Necessity Statement*: Continue medical management patient is needing prolonged hospitalization for deconditioned health and labored breathing Diagnoses Anemia D64.9 Anemia type: unspecified type Acute kidney injury N17.9 UTI (urinary tract infection) N39.0 Hypomagnesemia E83.42 Essential hypertension I10 Hypertension type: essential hypertension Type 2 diabetes mellitus with other circulatory complication, without long-term current use of insulin E11.59 Diabetes mellitus [facility] insulin use: without [facility] use Diabetes mellitus complication status: with circulatory complication Diabetes mellitus complication detail: with other circulatory complications
[2024-04-23 15:59] LABS: Glucose Point of Care 252 mg/dL (70-110)
--- NOTE | 2024-04-23 16:33 | PC.NURSE ---
patient stated she wants to go home and refused PT at noon. She did not participate with the therapist. nasal swab stat order for covid is on hold for now.
--- NOTE | 2024-04-23 16:39 | PC.NURSE ---
pt had asymptomatic run of 2 second/7 beat of pvcs/vtach on tele. check pt in room and she is on the phone. pt denies any chest pain,dizziness. BP-157/67, HR-76.
[2024-04-23 19:58] LABS: Glucose Point of Care 238 mg/dL (70-110)
[2024-04-24] VITALS: BP 143/79; PULSE 81; RESP 17; TEMP 36.9; O2SAT 95
[2024-04-24 02:00] VITALS: BP 143/79; PULSE 81; RESP 17; TEMP 36.9
[2024-04-24 04:00] VITALS: BP 146/57; PULSE 80; RESP 25; TEMP 37; O2SAT 94
[2024-04-24] MEDS: amlodipine 10 mg Tablet PO (04:25)
[2024-04-24] MEDS: sucralfate 1 gm/10 mL Oral Liq UDC PO ×2 (04:26→09:04)
[2024-04-24] MEDS: pantoprazole 40 mg SDV IVP (04:26)
[2024-04-24 04:37] LABS: Basophils # 0.1 10^3/uL (0.0-0.1); Basophils % 0.9 %; Eosinophils # 0.4 10^3/uL (0.0-0.8); Eosinophils % 3.8 %; Hematocrit 29.7 % (36-47); Lymphocytes # 1.5 10^3/uL (0.8-4.8); Lymphocytes % 15.5 %; Mean Corpuscular Hemoglobin 20.7 pg (27-33); Mean Corpuscular Volume 71.6 fl (85-98); Monocytes # 0.6 10^3/uL (0.2-0.9); Neutrophils # 6.91 10^3/uL (1.8-7.7); Neutrophils % 71.7 %; Nucleated Red Blood Cells % 0.3 %; Platelet Count 462 10^3/cmm (157-399); Red Blood Count 4.15 10^6/uL (3.85-5.65); Red Cell Distribution Width 25.6 % (12.1-15.1); White Blood Count 9.65 10^3/uL (3.29-11.43)
[2024-04-24 04:52] LABS: Anion Gap 14.3 (5-19); Blood Urea Nitrogen 26 mg/dL (8-23); Calcium 8.8 mg/dL (8.5-10.5); Carbon Dioxide 26 mmol/L (22-29); Chloride 98 mmol/L (98-107); Creatinine Clr Calc Pharmacy 54.8289; Glucose 284 mg/dL (65-115); Osmolality Calculated 295 mOsm/kg (285-295); Potassium 3.3 mmol/L (3.5-5.1); Sodium 135 mmol/L (136-145)
[2024-04-24] MEDS: bumetanide 0.25 mg/mL SDV 4 mL 1 MG IVP (06:04)
[2024-04-24 06:38] LABS: Glucose Point of Care 272 mg/dL (70-110)
[2024-04-24 07:45] VITALS: BP 161/60; PULSE 71; RESP 24; TEMP 36.4; O2SAT 96
[2024-04-24 09:04] VITALS: BP 158/53
[2024-04-24] MEDS: nitrofurantoin SR (BID) 100 mg Capsule PO (09:04)
[2024-04-24] MEDS: potassium chloride ER 20 mEq Tablet 40 MEQ PO (09:04)
[2024-04-24] MEDS: atenolol 50 mg Tablet 100 MG PO (09:04)
[2024-04-24] MEDS: atorvastatin 40 mg Tablet PO (09:04)
[2024-04-24] MEDS: cloNIDine 0.1 mg Tablet PO (09:04)
[2024-04-24] MEDS: hyDRALAzine 25 mg Tablet PO (09:04)
[2024-04-24] MEDS: insulin lispro 100 unit/1 mL SUBCUT ×2 (09:05→12:05)
[2024-04-24 11:25] VITALS: BP 133/57; PULSE 72; RESP 18; TEMP 36.7; O2SAT 98
[2024-04-24 11:29] LABS: Glucose Point of Care 200 mg/dL (70-110)
--- NOTE | 2024-04-24 11:47 | PM.PN ---
Subjective Subjective: Patient endorses feeling better today Required BiPAP overnight to decrease work of breathing Adequate diuresis Doing well on 3 L nasal cannula Vitals/I&O/Wt Last Vital Signs Temp 98.0 F 04/24/24 11:25 Pulse 72 04/24/24 11:25 Resp 18 04/24/24 11:25 BP 133/57 04/24/24 11:25 Pulse Ox 98 04/24/24 11:25 O2 Del Method Nasal Cannula 04/24/24 11:25 O2 Flow Rate 3 04/24/24 11:25 FiO2 35 04/23/24 22:50 04/23/24 04/24/24 04/24/24 22:59 06:59 14:59 Intake Total 360 / 840 240 / 240 Output Total 300 / 1200 1250 / 1250 Balance 60 / -360 -1010 / -1010 Weight last 48 hrs Weight 114.441 kg Weight 114.441 kg Physical Exam Narrative: Sign of fluid load improving Hemodynamically stable Currently on 3 L Decrease work of breathing today as compared to yesterday Pleasant cooperative Abdomen soft Morbidly obese Urinary Catheter Management: Walters: Cath Placed During This Visit: yes Reason for Continuing Indwelling Catheter: Other Urinary Catheter Date of Insertion: 04/19/24 Urinary Catheter Time of Insertion: 14:04 Data 04/24/24 04:12 04/24/24 04:12 A&P Assessment and plan (1) Anemia: Qualifiers: Anemia type: unspecified type Qualified Code(s): D64.9 - Anemia, unspecified (2) Acute kidney injury: (3) UTI (urinary tract infection): (4) Hypomagnesemia: (5) Hypertension: Qualifiers: Hypertension type: essential hypertension Qualified Code(s): I10 - Essential (primary) hypertension (6) Type 2 diabetes mellitus: Qualifiers: Diabetes mellitus detention insulin use: without press tender long goods use Diabetes mellitus complication status: with circulatory complication Diabetes mellitus complication detail: with other circulatory complications Qualified Code(s): E11.59 - Type 2 diabetes mellitus with other circulatory complications Plan Acute preserved ejection fraction heart failure exacerbation Adequate diuresis Labored breathing Adequate diuresis, improved with use of BiPAP overnight Macrocytic acute anemia Status post blood transfusion Patient may need capsule endoscopy outpatient and hematology referral No active source of GI bleed identified Full code Daughter updated Acute hypoxia related to CHF: Improving currently doing well on 3 L Patient seems to be very deconditioned will need senior living placement Acute on chronic kidney disease: Creatinine seems to be at baseline with diuresis now, creatinine improving Ready to be discharged to the senior living once get prior authorization Attestations Medical Necessity Statement*: Continue medical management Diagnoses Anemia D64.9 Anemia type: unspecified type Acute kidney injury N17.9 UTI (urinary tract infection) N39.0 Hypomagnesemia E83.42 Essential hypertension I10 Hypertension type: essential hypertension Type 2 diabetes mellitus with other circulatory complication, without long-term current use of insulin E11.59 Diabetes mellitus press tender long goods insulin use: without press tender long goods use Diabetes mellitus complication status: with circulatory complication Diabetes mellitus complication detail: with other circulatory complications
--- NOTE | 2024-04-24 12:05 | PC.SOCIAL ---
IMM Updated Updated pt on IMM. No questions voiced. Provided pt a copy. Initialed, dated, & timed copy in chart.
--- NOTE | 2024-04-24 14:10 | PM.DCS ---
Discharge Providers Date of Admission: 04/17/24 02:03 Date of Discharge: April 24, 2024 Attending Provider at Admission: Vijay Irizarry MD Attending Provider at Discharge: Moshe Gallo MD Primary Care Provider: Devante Granados DO Diagnoses at Discharge Discharge Diagnosis (1) Anemia: Status: Inactive Qualifiers: Anemia type: unspecified type Qualified Code(s): D64.9 - Anemia, unspecified (2) Acute kidney injury: Status: Inactive (3) UTI (urinary tract infection): Status: Inactive (4) Hypomagnesemia: Status: Inactive (5) Hypertension: Status: Inactive Qualifiers: Hypertension type: essential hypertension Qualified Code(s): I10 - Essential (primary) hypertension (6) Type 2 diabetes mellitus: Status: Inactive Qualifiers: Diabetes mellitus complication detail: with other circulatory complications Diabetes mellitus complication status: with circulatory complication 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 insulin use: without joint terminal attack controller use Qualified Code(s): E11.59 - Type 2 diabetes mellitus with other circulatory complications Reason for Visit Reason for Visit: generalized weakness Hospital Course Hospital Course 73-year female who was admitted for management evaluation of [facility] anemia, she received total 3 units PRBC during hospitalization, no active source of GI bleed was identified went for EGD and colonoscopy colonoscopy showed internal hemorrhoids, EGD did not show any active ulcer, I told her daughter that she probably will need enteroscopy and hematology referral if her anemia keeps getting worse. Her SONIYA improved with volume replenishment. She was treated for UTI with antibiotics as well during hospitalization, she remains hypotensive and received clonidine her antihypertensive regimen was optimized during hospitalization. Patient is being discharged to longterm with stable hemodynamics. Patient uses wheelchair at baseline. Not very active. Failure to thrive. Please note she went into diastolic CHF exacerbation with blood transfusions, we have to use aggressive Bumex regimen along BiPAP at nighttime to improve her work of breathing. We were able to wean her oxygen off from 5 L down to 3 L at the time of discharge. Physical Exam Narrative: Did well with PT Hemodynamically stable GCS 15 Signs of fluid load improved Urinary Catheter Management: Walters: Cath Placed During This Visit: yes Reason for Continuing Indwelling Catheter: Other Urinary Catheter Date of Insertion: 04/19/24 Urinary Catheter Time of Insertion: 14:04 Discharge Data Studies Completed and Pending Completed Studies During Hospitalization Category Date Time Status CT abdomen pelvis wo con [id number] Stat Cat Scan 04/17/24 01:[address] head wo con* [id number] Routine Cat Scan 04/17/24 02:[address] lumbar spine wo con* [id number] Stat Cat Scan 04/17/24 01:40 Completed XR chest 1V portable [id number] Stat Exams 04/16/24 23:59 Completed XR chest 1V portable [id number] Stat Exams 04/22/24 09:52 Completed CV. echo complete* [id number] Routine Ultrasound 04/19/24 13:54 Completed US abdomen complete* [id number] Stat Ultrasound 04/17/24 06:09 Completed Pending at discharge Category Date Time Status Basic Metabolic Panel AM LABS Lab 04/25/24 04:00 Ordered C.Diff PCR (Lab) Routine Lab 04/17/24 03:33 Uncollected Complete Blood Count w/Auto AM LABS Lab 04/25/24 04:00 Ordered Occult Blood Stool [Immunochemical Fecal OCB] Routine Lab 04/17/24 01:20 Uncollected SARS Covid-2 Antigen Stat Lab 04/23/24 08:41 Ordered Pathology: Surgical [PTH] Routine Pth 04/21/24 08:05 Received Radiology Impressions Abdomen/Pelvis CT 04/17/24 01:40 IMPRESSION: 1. Nonspecific colitis pattern. 2. Non simple pelvic free fluid with proteinaceous characteristics. Consider hemoperitoneum. ADDENDUM: 04/17/24 0432 THIS REPORT CONTAINS FINDINGS THAT MAY BE CRITICAL TO PATIENT CARE. The findings were verbally communicated via telephone conference with Fausto Newton at 4:31 AM CDT on 04/17/2024. The findings were acknowledged and understood. Lumbar Spine CT 04/17/24 01:40 IMPRESSION: Negative for acute lumbar spine pathology. Head CT 04/17/24 02:45 IMPRESSION: No acute intracranial process. Abdomen Ultrasound 04/17/24 06:09 Impression: 1. Cholelithiasis without evidence for acute cholecystitis. 2. Small amount of free fluid in the pelvis. There are a few low-level echoes within the fluid suggesting this could be related to blood or infection. 3. Mild coarse echotexture throughout the liver from chronic hepatocellular disease. No mass or bile duct dilatation. Chest X-Ray 04/22/24 09:52 IMPRESSION: Chest abnormality most compatible with congestive heart failure. Right shoulder arthropathy as above. Laboratory Results WBC 9.65 10^3/uL (3.29-11.43) 04/24/24 04:12 RBC 4.15 10^6/uL (3.85-5.65) 04/24/24 04:12 Hgb 8.60 g/dL (11.27-16.99) L 04/24/24 04:12 Hct 29.7 % (36-47) L 04/24/24 04:12 MCV 71.6 fl (85-98) L 04/24/24 04:12 MCH 20.7 pg (27-33) L 04/24/24 04:12 MCHC 29.0 g/dL (30-55) L 04/24/24 04:12 RDW 25.6 % (12.1-15.1) H 04/24/24 04:12 Plt Count 462 10^3/cmm (157-399) H 04/24/24 04:12 MPV 10.0 fL (7.4-10.4) 04/24/24 04:12 Neut % (Auto) 71.7 % 04/24/24 04:12 Lymph % (Auto) 15.5 % 04/24/24 04:12 [place] % (Auto) 6.0 % 04/24/24 04:12 Eos % (Auto) 3.8 % 04/24/24 04:12 Baso % (Auto) 0.9 % 04/24/24 04:12 Neut # (Auto) 6.91 10^3/uL (1.8-7.7) 04/24/24 04:12 Lymph # (Auto) 1.5 10^3/uL (0.8-4.8) 04/24/24 04:12 [place] # (Auto) 0.6 10^3/uL (0.2-0.9) 04/24/24 04:12 Eos # (Auto) 0.4 10^3/uL (0.0-0.8) 04/24/24 04:12 Baso # (Auto) 0.1 10^3/uL (0.0-0.1) 04/24/24 04:12 Nucleated RBC % (auto) 0.3 % 04/24/24 04:12 Nucleated RBCs # 0.0 /100WBC 04/24/24 04:12 Peripher Smr Path Cons Sent for review 04/17/24 00:17 ESR 16 mm/hr (0-15) H 04/17/24 00:17 Haptoglobin 220.0 mg/L (30-200) H 04/18/24 03:03 PT 14.00 SECONDS (12.1-14.9) 04/17/24 01:17 INR 1.05 (0.8-1.2) 04/17/24 01:17 APTT 24.2 SECONDS (23.9-36.7) 04/17/24 01:17 Specimen Type Arterial 04/22/24 15:34 Sample Site Brachial, right 04/22/24 15:34 ABG pH 7.47 (7.35-7.45) H 04/22/24 15:34 ABG pCO2 31.2 mmHg (35-45) L 04/22/24 15:34 ABG pO2 54.2 mmHg (80.0-100.0) L 04/22/24 15:34 ABG PO2/FiO2 Ratio 169 04/22/24 15:34 ABG HCO3 22.4 mmol/L (22-26) 04/22/24 15:34 ABG O2 Saturation 90.5 04/22/24 15:34 ABG Base Excess -1.1 mmol/L (-2.0-2.0) 04/22/24 15:34 [place] Test N/a 04/22/24 15:34 A-a O2 Gradient 17.6 mmHg (5-10) H 04/22/24 15:34 Hematocrit 22.3 % (37-47) L 04/22/24 15:34 Hgb O2 Saturation 87.9 % (95-100) L 04/22/24 15:34 Carboxyhemoglobin 1.6 %THgb (0.4-20.1) 04/22/24 15:34 Methemoglobin 1.3 % (0.4-1.5) 04/22/24 15:34 Total Hemoglobin 7.3 g/dL (12-16) L 04/22/24 15:34 Sodium 136.0 mmol/L (131-143) 04/22/24 15:34 Potassium 3.5 mmol/L (3.5-5.0) 04/22/24 15:34 Glucose 235.0 mg/dL (70-115) H 04/22/24 15:34 Ionized Calcium 1.2 mmol/L (1.1-1.4) 04/22/24 15:34 O2 Delivery Device Nc 04/22/24 15:34 O2 Liters/Min 3.0 % 04/22/24 15:34 FiO2 32.0 % 04/22/24 15:34 Bread Molder ID Amh 04/22/24 15:34 Sodium 135 mmol/L (136-145) L 04/24/24 04:12 Potassium 3.3 mmol/L (3.5-5.1) L 04/24/24 04:12 Chloride 98 mmol/L (98-107) 04/24/24 04:12 Carbon Dioxide 26 mmol/L (22-29) 04/24/24 04:12 Anion Gap 14.3 (5-19) 04/24/24 04:12 BUN 26 mg/dL (8-23) H 04/24/24 04:12 Creatinine 1.1 mg/dL (0.5-0.9) H 04/24/24 04:12 GFR Calculation Not Reportable 04/24/24 04:12 Glucose 284 mg/dL (65-115) H 04/24/24 04:12 POC Glucose 200 mg/dL (70-110) H 04/24/24 11:23 Calculated Osmolality 295 mOsm/kg (285-295) 04/24/24 04:12 Lactic Acid 1.7 mmol/L (0.5-2.2) 04/17/24 01:17 Calcium 8.8 mg/dL (8.5-10.5) 04/24/24 04:12 Magnesium 2.0 mg/dL (1.7-2.3) 04/22/24 03:12 Iron 20 ug/dL (37-145) L 04/21/24 10:31 TIBC 432 mcg/dl 04/17/24 01:17 % Saturation 3.7 % (20-50) L 04/17/24 01:17 Unsat Iron Binding 416 ug/dL (112-347) H 04/17/24 01:17 Transferrin 376 mg/dL (200-360) H 04/17/24 01:17 Ferritin 100 ng/mL (15-150) 04/21/24 10:31 Total Bilirubin 2.0 mg/dL (0.15-1.2) H 04/22/24 03:12 AST 12 U/L (0-32) 04/22/24 03:12 ALT 10 U/L (0-33) 04/22/24 03:12 Alkaline Phosphatase 141 U/L (35-105) H 04/22/24 03:12 Lactate Dehydrogenase 222 U/L (135-214) H 04/18/24 03:03 Creatine Kinase 87 U/L (26-192) 04/17/24 03:47 Troponin T Baseline 32 ng/L (0-10) H 04/17/24 21:11 Troponin T 120 Minute 32.33 ng/L (0-10) H 04/17/24 22:53 Delta Troponin T 0.33 ABS# (0-10) 04/17/24 22:53 Troponin T Hi Sens 6Hr 32.13 ng/L (0-10) H 04/18/24 03:03 Troponin T Hi Sens 6Hr Delta 0.13 ng/L (0-12) 04/18/24 03:03 C-Reactive Protein 3.0 mg/L (0.0-4.9) 04/17/24 01:17 NT-Pro-B Natriuret Pep 3212 pg/mL (0-450) H 04/17/24 01:17 Total Protein 6.5 g/dL (6.6-8.7) L 04/22/24 03:12 Albumin 2.9 g/dL (3.5-5.2) L 04/22/24 03:12 Globulin 3.6 g/dL (1.3-4.6) 04/22/24 03:12 Procalcitonin 0.18 ng/mL (0-0.5) 04/17/24 01:17 TSH 3.75 uIU/mL (0.27-4.20) 04/17/24 01:17 Urine Color Yellow (Yellow) 04/17/24 03:00 Urine Appearance Cloudy (CLEAR) A 04/17/24 03:00 Urine pH 5.5 (5-7) 04/17/24 03:00 Ur Specific [place] 1.016 (1.005-1.030) 04/17/24 03:00 Urine Protein 1+ (Negative) A 04/17/24 03:00 Urine Glucose (UA) Negative (Normal) 04/17/24 03:00 Urine Ketones Negative (Negative) 04/17/24 03:00 Urine Blood Negative (Negative) 04/17/24 03:00 Urine Nitrate Positive (Negative) A 04/17/24 03:00 Urine Bilirubin Negative (Negative) 04/17/24 03:00 Urine Urobilinogen 1.0 mg/dL (Negative) 04/17/24 03:00 Ur Leukocyte Esterase 2+ (Negative) A 04/17/24 03:00 Urine RBC None /hpf (0-2) 04/17/24 03:00 Urine WBC 51-100 /hpf (0-5) H 04/17/24 03:00 Ur Squamous Epith Cells 0-4 /hpf (0-5) H 04/17/24 03:00 Urine Bacteria 3+ /hpf (NONE) H 04/17/24 03:00 Urine Mucus 2+ /hpf 04/17/24 03:00 Salicylates < 0.3 mg/dL (3-10) L 04/17/24 01:17 Urine Opiates Screen Negative ng/mL (Negative) 04/17/24 03:00 Acetaminophen < 5.0 ug/mL (10-30) L 04/17/24 01:17 Ur Barbiturates Screen Negative ng/mL (Negative) 04/17/24 03:00 Ur Phencyclidine Scrn Negative ng/mL (Negative) 04/17/24 03:00 Ur Amphetamines Screen Negative ng/mL (Negative) 04/17/24 03:00 U Benzodiazepines Scrn Negative ng/mL (Negative) 04/17/24 03:00 Urine Cocaine Screen Negative ng/mL (Negative) 04/17/24 03:00 U Marijuana (THC) Screen Negative ng/mL (Negative) 04/17/24 03:00 Ethyl Alcohol < 10 mg/dL (0-10) 04/17/24 01:17 Serum Ketones Negative (Negative) 04/17/24 01:17 Adenovirus (PCR) Not detected (NOT DETECT) 04/17/24 06:10 C. pneumoniae DNA (PCR) Not detected (NOT DETECT) 04/17/24 06:10 Coronavirus 229E (PCR) Not detected (NOT DETECT) 04/17/24 06:10 Human Metapneumovir PCR Not detected (NOT DETECT) 04/17/24 06:10 Influenza A (H1) PCR Not detected (NOT DETECT) 04/17/24 06:10 Influ A (H1/09) PCR Not detected (NOT DETECT) 04/17/24 06:10 Influenza A (H3) PCR Not detected (NOT DETECT) 04/17/24 06:10 Influenza Type A (PCR) Not detected (NOT DETECT) 04/17/24 06:10 Influenza Type B (PCR) Not detected (NOT DETECT) 04/17/24 06:10 M. pneumoniae (PCR) Not detected (NOT DETECT) 04/17/24 06:10 Parainfluenza 1 (PCR) Not detected (NOT DETECT) 04/17/24 06:10 Parainfluenza 2 (PCR) Not detected (NOT DETECT) 04/17/24 06:10 Parainfluenza 3 (PCR) Not detected (NOT DETECT) 04/17/24 06:10 Parainfluenza 4 (PCR) Not detected (NOT DETECT) 04/17/24 06:10 RSV Type A (PCR) Not detected (NOT DETECT) 04/17/24 06:10 RSV Type B (PCR) Not detected (NOT DETECT) 04/17/24 06:10 Entero/Rhino (PCR) Not detected (NOT DETECT) 04/17/24 06:10 SARS-CoV-2 (PCR) Not detected (NOT DETECT) 04/17/24 06:10 Blood Type A Negative 04/22/24 14:37 Rho(D) Type Rh negative 04/22/24 14:37 Antibody Screen Negative 04/22/24 14:37 Crossmatch See Detail 04/22/24 14:37 Vitals Last Vital Signs Temp 98.0 F 04/24/24 11:25 Pulse 72 04/24/24 11:25 Resp 18 04/24/24 11:25 BP 133/57 04/24/24 11:25 Pulse Ox 98 04/24/24 11:25 O2 Del Method Nasal Cannula 04/24/24 11:25 O2 Flow Rate 3 04/24/24 11:25 FiO2 35 04/23/24 22:50 Discharge Plan Discharge Patient Disposition: Xfer SNF Condition: Stable Prescriptions: New hydralazine 25 mg Tablet 25 mg PO TID Qty: 90 0RF amlodipine 10 mg Tablet 10 mg PO Q24H Qty: 30 0RF bumetanide 1 mg tablet 1 mg PO DAILY Qty: 30 3RF Rx Instructions: WEIGHT GAIN>3LBS OR CANT LAY FLAT W sob nitrofurantoin macrocrystal 100 mg capsule 100 mg PO BID 7 Days Qty: 14 0RF Rx Instructions: must administer with a meal/food Protonix 40 mg tablet,delayed release (DR/EC) 40 mg PO QAM 28 Days Qty: 28 0RF Feosol 325 mg (65 mg iron) tablet 325 mg PO DAILY Qty: 60 0RF Senna-S 8.6-50 mg tablet 1 tab-cap PO DAILY PRN (Reason: constipation) Qty: 30 0RF potassium chloride 10 mEq tablet extended release 10 meq PO DAILY Qty: 30 1RF Continued calcium carbonate-vitamin D3 500 mg(1,250mg) -50 unit capsule 1 cap PO BID@, albuterol sulfate [ProAir HFA] 90 mcg/actuation HFA aerosol inhaler 2 puff INHALATION Q6H PRN (Reason: bronchospasm) Qty: 18 5RF rosuvastatin 10 mg tablet See Rx Instructions .ROUTE .COMPLEX Qty: 90 3RF Dose Instruction: Take 1 tablet by mouth once daily Rx Instructions: Take 1 tablet by mouth once daily (DME) pen needle, diabetic [TechLITE Pen Needle] 32 gauge x 5/32 needle See Rx Instructions .ROUTE .COMPLEX Qty: 100 3RF Dose Instruction: USE DIRECTED TO INJECT INSULIN DAILY Rx Instructions: USE DIRECTED TO INJECT INSULIN DAILY (DME) Accu-Chek Nettie Plus test strp Strip See Rx Instructions .Route Qty: 400 11RF Rx Instructions: As directed to test BS 4 times a day. Humulin 70/30 U-100 KwikPen 100 unit/mL (70-30) insulin pen See Rx Instructions .ROUTE .COMPLEX Qty: 15 11RF Dose Instruction: INJECT 35 UNITS SUBCUTANEOUSLY ONCE DAILY IN THE MORNING Rx Instructions: INJECT 35 UNITS SUBCUTANEOUSLY ONCE DAILY IN THE MORNING clonidine HCl 0.3 mg tablet See Rx Instructions .ROUTE .COMPLEX Qty: 90 0RF Dose Instruction: TAKE 1 TABLET BY MOUTH THREE TIMES DAILY Rx Instructions: TAKE 1 TABLET BY MOUTH THREE TIMES DAILY atenolol 100 mg tablet See Rx Instructions .ROUTE .COMPLEX Qty: 60 0RF Dose Instruction: TAKE 1 TABLET BY MOUTH TWICE DAILY AT 12PM AND 10PM Rx Instructions: TAKE 1 TABLET BY MOUTH TWICE DAILY AT 12PM AND 10PM Discontinued diphenhydramine HCl [Allergy (diphenhydramine)] 25 mg capsule 50 mg PO BEDTIME PRN (Reason: Sleep) ibuprofen 800 mg tablet 800 mg PO Q8H PRN (Reason: pain) Qty: 270 3RF lisinopril 20 mg tablet See Rx Instructions .ROUTE .COMPLEX Qty: 180 1RF Dose Instruction: Take 1 tablet by mouth twice daily Rx Instructions: Take 1 tablet by mouth twice daily hydrochlorothiazide 50 mg tablet See Rx Instructions .ROUTE .COMPLEX Qty: 90 3RF Dose Instruction: TAKE 1 TABLET BY MOUTH IN THE MORNING Rx Instructions: TAKE 1 TABLET BY MOUTH IN THE MORNING Discharge Orders: Discharge Order (Routine); Ordered 04/24/24 Ordered By: Moshe Gallo Referrals: [facility] [Outside] Devante Granados DO [Primary Care Provider] - Patient Instructions: Nitrofurantoin (By mouth) (Furadantin), Bumetanide (By mouth) (Bumex), Hydralazine (By mouth), Amlodipine (By mouth), Urinary Tract Infection in Women (DC), Anemia (DC), GI Post Discharge Instructions w/ Anesthesia, Opioid Safety Discharge Attestations Time Spent in Discharge Care*: greater than 30 min Quality Metrics Clinical Quality Measures [ No reported AMI, CVA or VTE this stay] Coding Level of Care Code Acute Code for Chg Fwd Diagnoses Anemia D64.9 Anemia type: unspecified type Acute kidney injury N17.9 UTI (urinary tract infection) N39.0 Hypomagnesemia E83.42 Essential hypertension I10 Hypertension type: essential hypertension Type 2 diabetes mellitus with other circulatory complication, without long-term current use of insulin E11.59 Diabetes mellitus complication detail: with other circulatory complications Diabetes mellitus complication status: with circulatory complication 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 insulin use: without longterm use
[2024-04-24 14:42] LABS: SARS Covid-2 Antigen Negative (Negative)
--- NOTE | 2024-04-24 15:32 | PC.NURSE ---
Report is called to Jazmyne CALIX at [facility], they are sending transportation for her.
== END 2024-04-24 15:32 | disposition skilled nursing facility (03) | DRG 811 ==
LOC: ER 04-17 01:43 → MEDSURG 04-17 02:03 → CSU 04-19 07:34
PROVIDERS: Family Medicine; Internal Medicine; Surgery; Admitting Provider Family Medicine; Emergency Provider Emergency Medicine; PCP Family Medicine; Visit Provider Internal Medicine
PROC: 0DJ08ZZ Inspection of Upper Intestinal Tract, Via Natural or Artificial Opening Endoscopic (ICD-10-PCS; CPT 43235; principal; 2024-04-21 08:00)
PROC: 0DJD8ZZ Inspection of Lower Intestinal Tract, Via Natural or Artificial Opening Endoscopic (ICD-10-PCS; CPT 45378; 2024-04-21 08:00)
DX: D50.9 Iron deficiency anemia, unspecified (principal); I50.33 Acute on chronic diastolic (congestive) heart failure; N17.9 Acute kidney failure, unspecified; N39.0 Urinary tract infection, site not specified; I13.0 Hypertensive heart and chronic kidney disease with heart failure and stage 1 through stage 4 chronic kidney disease, or unspecified chronic kidney disease; I16.1 Hypertensive emergency; Z68.41 Body mass index [BMI] 40.0-44.9, adult; R53.1 Weakness; E78.5 Hyperlipidemia, unspecified; Z99.3 Dependence on wheelchair; E11.59 Type 2 diabetes mellitus with other circulatory complications; E83.42 Hypomagnesemia; K64.8 Other hemorrhoids; R62.7 Adult failure to thrive; E66.01 Morbid (severe) obesity due to excess calories; R09.02 Hypoxemia; E11.22 Type 2 diabetes mellitus with diabetic chronic kidney disease; N18.9 Chronic kidney disease, unspecified; K57.30 Diverticulosis of large intestine without perforation or abscess without bleeding; D12.5 Benign neoplasm of sigmoid colon; K52.9 Noninfective gastroenteritis and colitis, unspecified; M54.50 Low back pain, unspecified; G89.29 Other chronic pain; R26.2 Difficulty in walking, not elsewhere classified; B96.89 Other specified bacterial agents as the cause of diseases classified elsewhere; M19.90 Unspecified osteoarthritis, unspecified site; Z88.8 Allergy status to other drugs, medicaments and biological substances; Z79.899 Other long term (current) drug therapy; Z79.4 Long term (current) use of insulin; T80.89XA Other complications following infusion, transfusion and therapeutic injection, initial encounter; D53.9 Nutritional anemia, unspecified; B96.20 Unspecified Escherichia coli [E. coli] as the cause of diseases classified elsewhere
CPT/HCPCS: 36415; 36416; 36430; 36600; 51702; 70450; 71045; 72131; 74176; 76700; 80048; 80051; 80053; 80306; 80307; 80503; 81003; 81015; 82009; 82330; 82550; 82728; 82805; 82962; 83010; 83540; 83550; 83605; 83615; 83735; 83880; 84145; 84443; 84466; 84484; 85014; 85018; 85025; 85610; 85651; 85730; 86140; 86850; 86900; 86920; 87040; 87077; 87086; 87150; 87186; 87205; 87426; 87486; 87581; 87633; 88305; 88342; 92507; 92523; 92526; 92610; 93005; 93306; 94660; 94664; 94760; 96372; 96376; 97110; 97162; 97167; 97530; 97535; 99285; J0360; J1756; J1815; J2470; J2543; J3475; J3490; J7030; P9016; P9040

== ENCOUNTER 2024-06-11 13:00 | Oncology outpatient (recurring) (ONCR) | payer MEDICARE, MEDICAID, SELFPAY ==
[2024-05-21] MEDS: iron sucrose 200 MG in sodium chloride 0.9% (100 ml) 100 ML 220 MG IV (12:48)
[2024-05-21 13:49] VITALS: BP 148/88; PULSE 88; RESP 18; TEMP 5391.1; TEMP 9736; O2SAT 94
[2024-05-28 12:50] VITALS: BP 154/68; PULSE 72; RESP 16; TEMP 36.5; O2SAT 97
[2024-05-28] MEDS: iron sucrose 200 MG in sodium chloride 0.9% (100 ml) 100 ML 220 MG IV (13:00)
[2024-05-28 13:30] VITALS: BP 145/69; PULSE 69; RESP 16; TEMP 36.1
[2024-06-04 13:11] VITALS: BP 134/75; PULSE 57; RESP 18; TEMP 36.4; O2SAT 99
[2024-06-04] MEDS: iron sucrose 200 MG in sodium chloride 0.9% (100 ml) 100 ML 220 MG IV (13:25)
[2024-06-04 14:10] VITALS: BP 154/64; PULSE 59; RESP 18; TEMP 36.4; O2SAT 99
[2024-06-11 13:00] VITALS: BP 121/68; PULSE 74; RESP 17; TEMP 36.6; O2SAT 98
[2024-06-11] MEDS: iron sucrose 200 MG in sodium chloride 0.9% (100 ml) 100 ML 220 MG IV (13:26)
--- NOTE | 2024-06-11 15:29 | PC.NURSE ---
patient came in for iron sucrose infusion started at 1326pm and ended 1400pm.tolerated well. IV discontinued.leno
== END 2024-06-13 23:59 | disposition home or self-care (01) ==
PROVIDERS: PCP Family Medicine; Visit Provider Internal Medicine
DX: Z79.899 Other long term (current) drug therapy (principal); Z53.9 Procedure and treatment not carried out, unspecified reason; D50.9 Iron deficiency anemia, unspecified
CPT/HCPCS: 96365; J1756

== ENCOUNTER 2024-06-18 11:56 | Oncology outpatient (recurring) (ONCR) | payer MEDICARE, MEDICAID, SELFPAY ==
[2024-06-18 12:10] VITALS: BP 184/75; PULSE 74; RESP 16; TEMP 36.9; O2SAT 97
[2024-06-18] MEDS: iron sucrose 200 MG in sodium chloride 0.9% (100 ml) 100 ML 220 MG IV (12:18)
[2024-06-18 13:02] VITALS: BP 151/83; PULSE 72; RESP 17; TEMP 36.4; O2SAT 95
== END 2024-07-13 23:59 | disposition home or self-care (01) ==
LOC: ONCMED 11:56
PROVIDERS: PCP Family Medicine; Visit Provider Internal Medicine
DX: D50.9 Iron deficiency anemia, unspecified; Z79.899 Other long term (current) drug therapy
CPT/HCPCS: 96365; J1756

== ENCOUNTER 2024-06-30 23:09 | Emergency (ER) | payer MEDICARE, MEDICAID, SELFPAY ==
[2024-06-30 23:10] VITALS: BP 151/63; PULSE 95; RESP 20; TEMP 37.3; O2SAT 94; BMI 41.3
--- NOTE | 2024-06-30 23:30 | XRR_ITS ---
PROCEDURE INFORMATION: Exam: XR Chest Exam date and time: 06/30/2024 11:37 PM Age: 74 years old Clinical indication: Shortness of breath; Patient HX: C/O SOB TECHNIQUE: Imaging protocol: Radiologic exam of the chest. Views: 1 view. COMPARISON: CR XR chest 1V portable [id number] 04/22/2024 10:05 AM FINDINGS: Lungs: Unremarkable. No consolidation. Pleural spaces: Unremarkable. No pleural effusion. No pneumothorax. Heart/Mediastinum: Unremarkable. No cardiomegaly. Bones/joints: Unremarkable. XR/XR chest 1V portable [id number] IMPRESSION: No acute findings.
--- NOTE | 2024-06-30 23:30 | ECG_ITS ---
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 Measurements Intervals [place] Rate: 88 P: 63 DC: 200 QRS: 12 QRSD: 94 T: 33 QT: 386 QTc: 469 Interpretive Statements SINUS RHYTHM MINIMAL ST DEPRESSION [0.025+ mV ST DEPRESSION] Compared to ECG 04/17/2024 07:36:07 First degree AV block no longer present ST (T wave) deviation still present Electronically Signed On 07-01-2024 19:24:46 LEAD ADVISOR by Ambrsoe Bennett M.D. [email or web address]
[2024-06-30 23:47] LABS: Basophils # 0.1 10^3/uL (0.0-0.1); Basophils % 0.6 %; Eosinophils # 0.3 10^3/uL (0.0-0.8); Eosinophils % 3.8 %; Hematocrit 42.3 % (36-47); Lymphocytes # 2.9 10^3/uL (0.8-4.8); Lymphocytes % 35.2 %; Mean Corpuscular HGB Conc 30.3 g/dL (30-55); Mean Corpuscular Volume 79.2 fl (85-98); Mean Platelet Volume 9.7 fL (7.4-10.4); Monocytes # 0.7 10^3/uL (0.2-0.9); Monocytes % 8.1 %; Neutrophils # 4.23 10^3/uL (1.8-7.7); Neutrophils % 52.1 %; Nucleated Red Blood Cells % 0 %; Platelet Count 289 10^3/cmm (157-399); Red Blood Count 5.34 10^6/uL (3.85-5.65); Red Cell Distribution Width 26.2 % (12.1-15.1); White Blood Count 8.13 10^3/uL (3.29-11.43)
[2024-06-30] MEDS: methylPREDNISolone sod succ 125 mg/2 mL INJ IV (23:53)
[2024-07-01] MEDS: ipratropium-albuterol 3 mL Neb INHALATION (00:03)
[2024-07-01 00:04] VITALS: PULSE 90; RESP 18; O2SAT 96
[2024-07-01 00:17] LABS: Alanine Aminotransferase 16 U/L (0-33); Albumin Level 3.8 g/dL (3.5-5.2); Alkaline Phosphatase 165 U/L (35-105); Aspartate Amino Transferase 17 U/L (0-32); Blood Urea Nitrogen 22 mg/dL (8-23); Calcium 10.4 mg/dL (8.5-10.5); Carbon Dioxide 23 mmol/L (22-29); Chloride 102 mmol/L (98-107); Creatinine Clr Calc Pharmacy 48.1959; Globulin 3.7 g/dL (1.3-4.6); Glucose 308 mg/dL (65-115); NT Pro B Type Natriuretic Pept 1394 pg/mL (0-450); Osmolality Calculated 301 mOsm/kg (285-295); Sodium 138 mmol/L (136-145); Total Bilirubin 0.6 mg/dL (0.15-1.2); Total Protein 7.5 g/dL (6.6-8.7)
[2024-07-01 00:21] LABS: Anion Gap 16.5 (5-19); Potassium 3.5 mmol/L (3.5-5.1)
[2024-07-01 00:36] LABS: Lactic Sepsis W/Reflex 1.6 mmol/L (0.5-2.2)
[2024-07-01 01:04] LABS: Covid PCR NEGATIVE (Negative); Influenza A NEGATIVE (Negative); Influenza B NEGATIVE (Negative); Respiratory Syncytial Virus Ce POSITIVE (Negative)
--- NOTE | 2024-07-01 01:13 | W.ED.SOB ---
HPI - SOB/Dyspnea General: Chief Complaint: Shortness of Breath/Dyspnea Stated Complaint: SOB Time Seen by Provider: 06/30/24 23:24 History of Present Illness: HPI Narrative: 74-year-old female presenting with shortness of breath. She had had a couple of breathing treatments in the senior care without much relief. She says that she has been coughing for the last couple of days. No leg swelling. No chest pain. She had been running a low-grade temperature. Related Data Home Medications Medication Instructions Recorded Confirmed calcium carbonate-vitamin D3 500 1 cap PO BID@06/29/20 04/17/24 mg (1,250 mg)-50 unit capsule Previous Rx's Medication Instructions Recorded albuterol sulfate 90 mcg/actuation 2 puff inhalation Q6H PRN 12/14/22 aerosol inhaler (ProAir HFA) bronchospasm #18 grams rosuvastatin 10 mg tablet See Rx Instructions .Route 07/05/23 .COMPLEX #90 tabs pen needle, diabetic 32 gauge x #100 ea 09/06/23 (TechLITE Pen Needle) blood sugar diagnostic (Accu-Chek #400 ea 09/22/23 Nettie Plus test strips) insulin NPH-regular 70-30 U-100 See Rx Instructions .Route 03/04/24 insulin 100 unit/mL subcutaneous .COMPLEX #15 mL pen (Humulin 70/30 U-100 KwikPen) clonidine HCl 0.3 mg tablet See Rx Instructions .Route 03/19/24 .COMPLEX #90 tabs amlodipine 10 mg tablet 10 mg PO Q24H #30 tabs 04/22/24 bumetanide 1 mg tablet 1 mg PO DAILY shortness of breath 04/22/24 #30 tabs hydralazine 25 mg tablet 25 mg PO TID #90 tabs 04/22/24 ferrous sulfate 325 mg (65 mg 325 mg PO DAILY #60 tabs 04/24/24 iron) tablet (Feosol) potassium chloride 10 mEq 10 meq PO DAILY #30 tabs 04/24/24 tablet,extended release sennosides 8.6 mg-docusate sodium 1 tab-cap PO DAILY PRN 04/24/24 50 mg tablet (Senna-S) constipation #30 tabs atenolol 100 mg tablet See Rx Instructions .Route 04/30/24 .COMPLEX #60 tabs ipratropium 0.5 mg-albuterol 3 mg 3 ml inhalation Q6H PRN shortness 07/01/24 (2.5 mg base)/3 mL nebulization of breath #90 mL soln Allergies Allergy/AdvReac Type Severity Reaction Status Date / Time furosemide [From Lasix] Allergy Intermediate ALGY-Hives Verified 07/17/23 10:17 metformin AdvReac Intermediate algy-diarrh Verified 07/17/23 10:17 ea PFSH ED PFSH: Medical History Iron deficiency anemia Colitis UTI (urinary tract infection) Hypomagnesemia Acute kidney injury Acute kidney insufficiency Leukocytosis Anemia Bilateral leg weakness Osteoarthritis deformans Leg weakness, bilateral Type 2 diabetes mellitus Hypertension Hyperlipidemia Social History Smoking and tobacco/nicotine status: never used tobacco/nicotine Alcohol intake: never Physical Exam Const: GENERAL APPEARANCE: cooperative, ill appearing (Mildly) and frail appearing (Mildly) HENMT: COMMON NORMALS: normocephalic, atraumatic and Normal external nose present HEAD & SCALP: normocephalic and atraumatic FACE & SINUS: normal facial exam and face symmetric NOSE: Normal external nose present Eye: COMMON NORMALS: Equal, round and reactive pupils present and EOMs intact bilaterally PUPIL: Yes Equal, round and reactive pupils present Neck/C-Spine: GENERAL: Yes trachea midline Chest: CHEST: Yes Symmetrical chest wall rise Resp: EFFORT & INSPECTION: Yes tachypneic AUSCULTATION: wheezes Cardio: COMMON NORMALS: regular rate and regular rhythm RATE: regular rate RHYTHM: regular rhythm GI: COMMON NORMALS: Normal to inspection, nondistended, normoactive bowel sounds present Extremity: COMMON NORMALS: no pedal edema Neuro: KANU COMA SCALE: document GCS findings Kanu coma scale eye opening: Spontaneous Kanu coma scale verbal response: Orientated [place] coma scale motor response: Obey commands [place] coma scale total score: 15 SENSORY EXAM: Yes extremities (intact) Psych: COMMON NORMALS: speech normal SPEECH: Yes normal speech Skin: COMMON NORMALS: no rashes or lesions noted GENERAL SKIN EXAM: no rashes or lesions noted Course Vital Signs: Vital signs: Vital Signs Temperature 99.2 F 06/30/24 23:10 Pulse Rate 79 07/01/24 02:31 Respiratory Rate 18 07/01/24 00:04 Blood Pressure 170/70 07/01/24 02:31 Pulse Oximetry 94 07/01/24 02:31 Oxygen Delivery Me thod Room Air 07/01/24 00:04 MDM - SOB/Dyspnea Medical Decision Making Patient exhibiting wheezes. Room air saturations have been normal despite this. CBC is normal. BMP shows a sugar of 308 is otherwise normal. She is positive for RSV. She is given Solu-Medrol. Will not continue Solu-Medrol as she is diabetic. Her lactic acid is only 1.6. Chest x-ray is negative for infiltrate. DuoNeb treatments every 4 hours while awake for the first 24 hours, then as needed. Return for worsening symptoms. Lab Data 06/30/24 23:42 06/30/24 23:42 Labs/Radiology: Radiology Impressions Chest X-Ray 06/30/24 23:30 IMPRESSION: No acute findings. Laboratory Results WBC 8.13 10^3/uL (3.29-11.43) 06/30/24 23:42 RBC 5.34 10^6/uL (3.85-5.65) 06/30/24 23:42 Hgb 12.80 g/dL (11.27-16.99) 06/30/24 23:42 Hct 42.3 % (36-47) 06/30/24 23:42 MCV 79.2 fl (85-98) L 06/30/24 23:42 MCH 24.0 pg (27-33) L 06/30/24 23:42 MCHC 30.3 g/dL (30-55) 06/30/24 23:42 RDW 26.2 % (12.1-15.1) H 06/30/24 23:42 Plt Count 289 10^3/cmm (157-399) 06/30/24 23:42 MPV 9.7 fL (7.4-10.4) 06/30/24 23:42 Neut % (Auto) 52.1 % 06/30/24 23:42 Lymph % (Auto) 35.2 % 06/30/24 23:42 [place] % (Auto) 8.1 % 06/30/24 23:42 Eos % (Auto) 3.8 % 06/30/24 23:42 Baso % (Auto) 0.6 % 06/30/24 23:42 Neut # (Auto) 4.23 10^3/uL (1.8-7.7) 06/30/24 23:42 Lymph # (Auto) 2.9 10^3/uL (0.8-4.8) 06/30/24 23:42 [place] # (Auto) 0.7 10^3/uL (0.2-0.9) 06/30/24 23:42 Eos # (Auto) 0.3 10^3/uL (0.0-0.8) 06/30/24 23:42 Baso # (Auto) 0.1 10^3/uL (0.0-0.1) 06/30/24 23:42 Nucleated RBC % (auto) 0 % 06/30/24 23:42 Nucleated RBCs # 0.0 /100WBC 06/30/24 23:42 Sodium 138 mmol/L (136-145) 06/30/24 23:42 Potassium 3.5 mmol/L (3.5-5.1) 06/30/24 23:42 Chloride 102 mmol/L (98-107) 06/30/24 23:42 Carbon Dioxide 23 mmol/L (22-29) 06/30/24 23:42 Anion Gap 16.5 (5-19) 06/30/24 23:42 BUN 22 mg/dL (8-23) 06/30/24 23:42 Creatinine 1.2 mg/dL (0.5-0.9) H 06/30/24 23:42 GFR Calculation Not Reportable 06/30/24 23:42 Glucose 308 mg/dL (65-115) H 06/30/24 23:42 Calculated Osmolality 301 mOsm/kg (285-295) H 06/30/24 23:42 Lactic Acid 1.6 mmol/L (0.5-2.2) 06/30/24 23:42 Calcium 10.4 mg/dL (8.5-10.5) 06/30/24 23:42 Total Bilirubin 0.6 mg/dL (0.15-1.2) 06/30/24 23:42 AST 17 U/L (0-32) 06/30/24 23:42 ALT 16 U/L (0-33) 06/30/24 23:42 Alkaline Phosphatase 165 U/L (35-105) H 06/30/24 23:42 NT-Pro-B Natriuret Pep 1394 pg/mL (0-450) H 06/30/24 23:42 Total Protein 7.5 g/dL (6.6-8.7) 06/30/24 23:42 Albumin 3.8 g/dL (3.5-5.2) 06/30/24 23:42 Globulin 3.7 g/dL (1.3-4.6) 06/30/24 23:42 Coronavirus (PCR) Negative (Negative) 06/30/24 23:45 Influenza A (PCR) Negative (Negative) 06/30/24 23:45 Influenza Type B (PCR) Negative (Negative) 06/30/24 23:45 RSV (PCR) Positive (Negative) 06/30/24 23:45 All radiology interpretation(s) finalized by discharge Discharge Plan Discharge Patient Disposition: Home Clinical Impression: RSV (acute bronchiolitis due to respiratory syncytial virus) Condition: Stable Prescriptions: New ipratropium-albuterol 0.5 mg-3 mg(2.5 mg base)/3 mL solution for nebulization 3 ml inhalation Q6H PRN (Reason: shortness of breath) Qty: 90 0RF No Action calcium carbonate-vitamin D3 500 mg(1,250mg) -50 unit capsule 1 cap PO BID@06,22 albuterol sulfate [ProAir HFA] 90 mcg/actuation HFA aerosol inhaler 2 puff INHALATION Q6H PRN (Reason: bronchospasm) Qty: 18 5RF rosuvastatin 10 mg tablet See Rx Instructions .ROUTE .COMPLEX Qty: 90 3RF Dose Instruction: Take 1 tablet by mouth once daily Rx Instructions: Take 1 tablet by mouth once daily (DME) pen needle, diabetic [TechLITE Pen Needle] 32 gauge x 5/32 needle See Rx Instructions .ROUTE .COMPLEX Qty: 100 3RF Dose Instruction: USE DIRECTED TO INJECT INSULIN DAILY Rx Instructions: USE DIRECTED TO INJECT INSULIN DAILY (DME) Accu-Chek Nettie Plus test strp Strip See Rx Instructions .Route Qty: 400 11RF Rx Instructions: As directed to test BS 4 times a day. Humulin 70/30 U-100 KwikPen 100 unit/mL (70-30) insulin pen See Rx Instructions .ROUTE .COMPLEX Qty: 15 11RF Dose Instruction: INJECT 35 UNITS SUBCUTANEOUSLY ONCE DAILY IN THE MORNING Rx Instructions: INJECT 35 UNITS SUBCUTANEOUSLY ONCE DAILY IN THE MORNING clonidine HCl 0.3 mg tablet See Rx Instructions .ROUTE .COMPLEX Qty: 90 0RF Dose Instruction: TAKE 1 TABLET BY MOUTH THREE TIMES DAILY Rx Instructions: TAKE 1 TABLET BY MOUTH THREE TIMES DAILY atenolol 100 mg tablet See Rx Instructions .ROUTE .COMPLEX Qty: 60 0RF Dose Instruction: TAKE 1 TABLET BY MOUTH TWICE DAILY AT 12PM AND 10PM Rx Instructions: TAKE 1 TABLET BY MOUTH TWICE DAILY AT 12PM AND 10PM hydralazine 25 mg Tablet 25 mg PO TID Qty: 90 0RF amlodipine 10 mg Tablet 10 mg PO Q24H Qty: 30 0RF bumetanide 1 mg tablet 1 mg PO DAILY Qty: 30 3RF Rx Instructions: WEIGHT GAIN>3LBS OR CANT LAY FLAT W sob Feosol 325 mg (65 mg iron) tablet 325 mg PO DAILY Qty: 60 0RF Senna-S 8.6-50 mg tablet 1 tab-cap PO DAILY PRN (Reason: constipation) Qty: 30 0RF potassium chloride 10 mEq tablet extended release 10 meq PO DAILY Qty: 30 1RF Discharge Orders: Discharge ED (Routine); Ordered 07/01/24 Ordered By: Cachorro Rahman Referrals: Devante Granados DO [Primary Care Provider] - Patient Instructions: RSV (Respiratory Syncytial Virus) Infection (ED), Opioid Safety, Pain Management Coding Level of Care Code ED Storage Garage Attendant for Zackary Ureña
--- NOTE | 2024-07-01 01:43 | PC.NURSE ---
report called to anuradha at [facility].
--- NOTE | 2024-07-01 01:55 | PC.NURSE ---
pt resting comfortably with eyes closed. respirations even and non labored. no distress noted. no needs identified. bed low/locked. sitter in place. will continue to monitor.
[2024-07-01 02:31] VITALS: BP 170/70; PULSE 79; O2SAT 94
== END 2024-07-01 02:32 | disposition home or self-care (01) ==
PROVIDERS: Emergency Provider Emergency Medicine; PCP Family Medicine
DX: J21.0 Acute bronchiolitis due to respiratory syncytial virus (principal); Z11.52 Encounter for screening for COVID-19; E11.9 Type 2 diabetes mellitus without complications; E78.5 Hyperlipidemia, unspecified; I10 Essential (primary) hypertension
CPT/HCPCS: 0241U; 36415; 71045; 80053; 83605; 83880; 85025; 93005; 94640; 96374; 99285; J2919